=== PATIENT | female | born 1950 | race Caucasian/White ===

== ENCOUNTER 2020-01-14 00:09 | Outpatient (CLI) | payer MEDICARE, SELFPAY ==
[2020-01-14 18:02] LABS: SARS-CoV-2 RNA PCR Negative
== END 2020-01-14 00:10 | disposition home or self-care (01) ==
LOC: ANHCOVIDDT 00:09
PROVIDERS: PCP Family Medicine; Visit Provider Surgery
DX: Z01.812 Encounter for preprocedural laboratory examination (principal); Z20.828 Contact with and (suspected) exposure to other viral communicable diseases
CPT/HCPCS: 87635; C9803; U0003

== ENCOUNTER 2020-01-14 10:32 | Outpatient (CLI) | payer MEDICARE, SELFPAY ==
--- NOTE | 2020-01-14 10:34 | ECG_ITS ---
Measurements Intervals [place] Rate: 84 P: 25 MO: 178 QRS: 41 QRSD: 84 T: 30 QT: 349 QTc: 415 Interpretive Statements SINUS RHYTHM BASELINE ARTIFACT- I, II, III, AVR, AVL, AVF NORMAL ECG Electronically Signed On 01-14-2020 10:56:05 CDT by Portillo Ortiz D.O.
== END 2020-01-14 10:33 | disposition home or self-care (01) ==
LOC: ANHSURGERY 10:34
PROVIDERS: PCP Family Medicine; Visit Provider Surgery
DX: I10 Essential (primary) hypertension (principal); Z01.818 Encounter for other preprocedural examination
CPT/HCPCS: 93005

== ENCOUNTER 2020-01-17 00:38 | Day surgery (SDC) | payer MEDICARE, SELFPAY ==
[2020-01-13 14:10] VITALS: BMI 38.9
[2020-01-17 06:58] VITALS: BP 128/70; PULSE 93; RESP 18; TEMP 35.9; O2SAT 99
[2020-01-17] MEDS: LACTATED RINGERS 1,000 ML 30 ML IV CONT ×2 (07:39→09:48)
--- NOTE | 2020-01-17 08:30 | WPDANESEPPF ---
Anes - Initial Pre Proc Eval Procedure: Operation Date: 01/17/20 08:45 Proposed Procedures p Excision Lipoma Left Upper Back - Tyler Chin MD Date/Time: 01/17/20 08:30 Surgeon: Tyler Chin MD Pre Op Diagnosis: Lipoma Left Upper Back Patient Data Age: 69 Gender: F Height: 5 ft 1 in Weight: 91.4 kg Last Vital Signs Temp 35.9 C L 01/17/20 06:58 Pulse 93 01/17/20 06:58 Resp 18 01/17/20 06:58 BP 128/70 01/17/20 06:58 Pulse Ox 99 01/17/20 06:58 Allergies Allergy/AdvReac Type Severity Reaction Status Date / Time SHELLFISH Allergy Severe ANAPHYLACTIC Uncoded 01/17/20 07:13 SHOCK Home Medications Medication Instructions Recorded Confirmed Type multivitamin 1 tablet PO DAILY 03/26/19 01/17/20 History cyclobenzaprine 5 mg tablet 5 mg PO TID PRN #30 tablet 06/03/19 01/17/20 Rx ospemifene 60 mg tablet 60 mg PO DAILY #90 tablet 12/28/19 01/17/20 Rx diclofenac sodium 75 mg PO PRN PRN 01/13/20 01/17/20 History lisinopril 30 mg PO HS 01/13/20 01/17/20 History Patient hx anesthesia problems: none Family hx anesthesia problems: none PMFSH Past Medical History Medical History Dermatitis herpetiformis HTN (hypertension) SVT (supraventricular tachycardia) Surgical History Surgical History H/O arthroscopy of right knee H/O foot surgery History of delivery History of colonoscopy History of D&C History of right breast biopsy Family History Family History Mother Diabetes mellitus Hypertension Patient's mother is , Onset Age: 85 Familial primary pulmonary hypertension Father Malignant neoplasm of prostate Patient's father is , Onset Age: 78 Sibling Patient's brother is , Onset Age: 67 Family history of chronic obstructive pulmonary disease Other Family history of attention deficit hyperactivity disorder (ADHD) Social History Social History Smoking status: Never smoker Alcohol intake: never Substance use: unknown Living arrangements: with family Gender identity (if verbalized by the patient): Female Spiritual care concerns: No Anes - Eval Final PreProcedure Day of Procedure 01/17/20 08:30 Patient weight: obese Heart: regular rate and rhythm Lungs: clear to auscultation Airway: Mallampati scale class II Neurological: alert and oriented Last oral intake: >/= 8 hours ASA classification: III Emergent: no Anesthetic plan: proceed Anesthesia type and monitoring: general GIVS and standard monitoring Informed Consent: The patient's anesthetic plan and its attendant risks and benefits were discussed with the patient/family/POA. Questions were solicited and answers provided to the satisfaction of the patient/family/POA.
--- NOTE | 2020-01-17 08:37 | WPDHPUPDATE1 ---
History and Physical Update Update Date/Time: 01/17/20 08:37 History and Physical has been reviewed, including an updated exam of the patient. There are NO changes in the patient's condition. Risks, benefits, and alternatives have been discussed and questions answered. Patient agrees to proceed with procedure.
[2020-01-17] MEDS: BUPIVACAINE/EPINEPHRINE 0.5% 10 ML VIAL 20 ML INFILTRATE (09:06)
--- NOTE | 2020-01-17 09:43 | P.OP_ITS ---
Procedure Note - Detailed Date of procedure: 01/17/20 Pre-op diagnosis: Lipoma Left Upper Back Subcutaneous mass a 0.2 x 5.2 cm left upper back Post-op diagnosis: same Procedure performed: Excision of subcutaneous mass left upper back. Description of procedure: The patient was placed in the right lateral decubitus position. After a surgical time out confirming patient and procedure the patient was prepped and draped in the usual sterile fashion. Local anesthetic was administered subcutaneously. The lesion measured 8.2 x 5.2 cm before instilling any local anesthetic. A direct transverse incision was made over the lesion then I raised superior inferior flaps with Bovie cautery taking a thin margin circumferentially. I dissected down to the deep subcutaneous tissues and then completely excised the mass under direct vision. It appeared to be a fatty lobulated mass with only a very thin capsule. Bleeding was controlled with electrocautery. The wound was closed in two layers. An un-dyed 2-0 vicryl deep dermal and then a 4-0 undyed Vicryl running subcuticular closure was completed. Surgical glue applied as dressing. Estimated blood: loss 5 cc Patient tolerated this well. Implants: none Anesthesia: local Surgeon: Tyler Chin MD Advanced Practice Nurse: GURU [place], or 1st assist Estimated blood loss (mL): 5 Drains: No Packing: No Pathology: yes (Subcutaneous mass from the left upper back) Complications: No immediate complications Condition: stable Disposition: same day Findings: A somewhat lobulated fatty mass in the subcutaneous space densely adhered to the underlying fascia and back muscles.
[2020-01-17 09:48] VITALS: BP 116/69; PULSE 83; RESP 16; O2SAT 97
[2020-01-17 10:15] VITALS: BP 109/77; PULSE 76; RESP 16
[2020-01-17 10:45] VITALS: BP 115/73; PULSE 62; RESP 14
== END 2020-01-17 11:05 | disposition home or self-care (01) ==
PROVIDERS: PCP Family Medicine; Visit Provider Surgery
PROC: (CPT 21931; principal; 2020-01-17 08:45)
DX: D17.1 Benign lipomatous neoplasm of skin and subcutaneous tissue of trunk (principal); I10 Essential (primary) hypertension; E66.9 Obesity, unspecified; Z68.38 Body mass index [BMI] 38.0-38.9, adult
CPT/HCPCS: 21931; 87635; 88304; 93005; C9803; J2704; J3010; J7120; U0003

== ENCOUNTER 2020-03-25 00:35 | Outpatient (CLI) | payer MEDICARE, SELFPAY ==
[2020-03-25 19:13] LABS: SARS-CoV-2 RNA PCR Negative
== END 2020-03-25 00:36 | disposition home or self-care (01) ==
LOC: ANHCOVIDDT 00:35
PROVIDERS: PCP Family Medicine; Visit Provider Internal Medicine Gastroenterology
DX: Z01.818 Encounter for other preprocedural examination (principal); Z20.828 Contact with and (suspected) exposure to other viral communicable diseases
CPT/HCPCS: 87635; C9803; U0003

== ENCOUNTER 2020-03-29 00:56 | Day surgery (SDC) | payer MEDICARE, SELFPAY ==
[2020-03-21 12:04] VITALS: BMI 36.6
[2020-03-29 06:51] VITALS: BP 140/85; PULSE 126; RESP 18; TEMP 36.4; O2SAT 96
[2020-03-29] MEDS: LACTATED RINGERS 1,000 ML 150 ML IV CONT (07:01)
--- NOTE | 2020-03-29 07:04 | SUR.PREOP ---
ANESTHSIA NOTIFIED OF HEART RATE OF 125-130
--- NOTE | 2020-03-29 07:24 | P.PNAN_ITS ---
Anes - Initial Pre Proc Eval Procedure: Operation Date: 03/29/20 08:00 Proposed Procedures p Screening Colonoscopy - Stanislav Cintron MD Date/Time: 03/29/20 07:24 Surgeon: Stanislav Cintron MD Pre Op Diagnosis: Hx of Colon Polyps Patient Data Age: 69 Gender: F Height: 5 ft 2 in Weight: 89.5 kg Last Vital Signs Temp 97.6 F 03/29/20 06:51 Pulse 126 H 03/29/20 06:51 Resp 18 03/29/20 06:51 BP 140/85 03/29/20 06:51 Pulse Ox 96 03/29/20 06:51 Allergies Allergy/AdvReac Type Severity Reaction Status Date / Time SHELLFISH Allergy Severe ANAPHYLACTIC Uncoded 03/21/20 12:05 SHOCK Home Medications Medication Instructions Recorded Confirmed Type multivitamin 1 tablet PO DAILY 03/26/19 03/29/20 History diclofenac sodium 75 mg PO PRN PRN 01/13/20 03/29/20 History lisinopril 30 mg PO HS 01/13/20 03/29/20 History docusate sodium [Colace] 50 mg PO PRN PRN 03/21/20 03/29/20 History Patient hx anesthesia problems: none Family hx anesthesia problems: none PMFSH Past Medical History Medical History (Updated 01/26/20 @ 10:33 by Talita Persaud) Dermatitis herpetiformis HTN (hypertension) SVT (supraventricular tachycardia) Surgical History Surgical History H/O arthroscopy of right knee H/O foot surgery History of delivery History of colonoscopy History of D&C History of right breast biopsy Family History Family History Mother Diabetes mellitus Hypertension Patient's mother is , Onset Age: 85 Familial primary pulmonary hypertension Father Malignant neoplasm of prostate Patient's father is , Onset Age: 78 Sibling Patient's brother is , Onset Age: 67 Family history of chronic obstructive pulmonary disease Other Family history of attention deficit hyperactivity disorder (ADHD) Social History Social History Smoking status: Never smoker Alcohol intake: never Substance use: never Substance use type: does not use Living arrangements: with family Gender identity (if verbalized by the patient): Female Spiritual care concerns: No Anes - Eval Final PreProcedure Day of Procedure 03/29/20 07:24 Patient weight: overweight Heart: tachycardia Lungs: clear to auscultation Airway: Mallampati scale class II Neurological: alert and oriented Last oral intake: >/= 8 hours ASA classification: III Emergent: no Anesthetic plan: proceed Anesthesia type and monitoring: general GIVS and standard monitoring Informed Consent: The patient's anesthetic plan and its attendant risks and benefits were discussed with the patient/family/POA. Questions were solicited and answers provided to the satisfaction of the patient/family/POA.
--- NOTE | 2020-03-29 08:15 | P.CONGI_ITS ---
Assessment and Plan Assessment and plan (1) History of colon polyps: Code(s): Z86.010 - Personal history of colonic polyps Status: Acute Assessment and Plan: Patient has a history of rectal colon polyp more than 10 years ago. Last exam 2011 was unremarkable. Patient presents today for surveillance colonoscopy. Further recommendations will be given after endoscopy. GI Consult Note Consult date/time: 03/29/20 08:15 HPI: Alexia Black is a 69 year old female Presents for surveillance colonoscopy. Patient followed by Dr. Crawford. Patient has a history of colon polyps in the past. Her recent weight appetite bowel movements are normal. She denies abdominal pain. She has had no bleeding. Family history is noncontributory. Last exam was in 2011. Review of Systems Review of Systems: All systems reviewed & are unremarkable except as noted in HPI and below PMFSH Past Medical History Medical History (Updated 03/29/20 @ 08:17 by Stanislav Cintron MD) Dermatitis herpetiformis HTN (hypertension) SVT (supraventricular tachycardia) Surgical History Surgical History H/O arthroscopy of right knee H/O foot surgery History of delivery History of colonoscopy History of D&C History of right breast biopsy Family History Family History Mother Diabetes mellitus Hypertension Patient's mother is , Onset Age: 85 Familial primary pulmonary hypertension Father Malignant neoplasm of prostate Patient's father is , Onset Age: 78 Sibling Patient's brother is , Onset Age: 67 Family history of chronic obstructive pulmonary disease Other Family history of attention deficit hyperactivity disorder (ADHD) Social History Social History Smoking status: Never smoker Alcohol intake: never Substance use: never Substance use type: does not use Living arrangements: with family Gender identity (if verbalized by the patient): Female Spiritual care concerns: No Meds Home Medications and Allergies Home Medications Medication Instructions Recorded Confirmed Type multivitamin 1 tablet PO DAILY 03/26/19 03/29/20 History diclofenac sodium 75 mg PO PRN PRN 01/13/20 03/29/20 History lisinopril 30 mg PO HS 01/13/20 03/29/20 History docusate sodium [Colace] 50 mg PO PRN PRN 03/21/20 03/29/20 History Allergies Allergy/AdvReac Type Severity Reaction Status Date / Time SHELLFISH Allergy Severe ANAPHYLACTIC Uncoded 03/21/20 12:05 SHOCK Vital Signs Vital Signs - 24 hr 03/29/20 06:51 Temperature 97.6 F Pulse Rate 126 H Respiratory Rate 18 Blood Pressure 140/85 Pulse Oximetry 96 Exam Narrative: Exam Narrative: Physical exam reveals patient to be alert. Vital signs stable. HEENT exam unremarkable. Lungs are clear to auscultation and percussion. Heart is without murmur or extra sounds. Abdominal exam bowel sounds are present soft nontender with no organomegaly. Digital external rectal exam normal.
[2020-03-29 08:17] VITALS: BP 112/77; PULSE 107; RESP 20; O2SAT 95
[2020-03-29 08:27] VITALS: BP 120/79; PULSE 106; RESP 21; O2SAT 98
[2020-03-29 08:37] VITALS: BP 114/83; PULSE 103; RESP 22; O2SAT 98
== END 2020-03-29 08:49 | disposition home or self-care (01) ==
PROVIDERS: PCP Family Medicine; Visit Provider Internal Medicine Gastroenterology
PROC: 0DJD8ZZ Inspection of Lower Intestinal Tract, Via Natural or Artificial Opening Endoscopic (ICD-10-PCS; CPT 45378; principal; 2020-03-29 08:00)
DX: Z12.11 Encounter for screening for malignant neoplasm of colon (principal); K63.89 Other specified diseases of intestine; K64.8 Other hemorrhoids; Z86.010 Personal history of colon polyps; I10 Essential (primary) hypertension; I47.1 Supraventricular tachycardia
CPT/HCPCS: G0105; 87635; C9803; J2704; J7120; U0003

== ENCOUNTER → 2021-03-22 16:46 | Outpatient (CLI) | payer MEDICARE, SELFPAY ==
--- NOTE | ~2021-03-22 | MM_ITS ---
EXAMINATION: MM screening al BI w calvin HISTORY: Screening mammogram TECHNIQUE: Craniocaudal and mediolateral oblique 3-D tomosynthesis images were obtained and synthetic 2-D images were generated. CAD analysis was submitted and interpreted. COMPARISON: 04/01/2019, 04/29/2017, 10/05/2015 bilateral screening mammogram examinations BREAST PARENCHYMAL COMPOSITION: There are scattered areas of fibroglandular density. FINDINGS: There is no evidence of suspicious mass, calcification, or architectural distortion to sugg est malignancy in either breast. There has been no suspicious interval change. IMPRESSION: 1. No mammographic evidence of malignancy. 2. Recommend routine screening mammography in one year. BI-RADS Category 1: Negative Reviewed, dictated and finalized at location A. CARE FOREMAN
== END ==
PROVIDERS: PCP Family Medicine; Visit Provider Family Medicine
DX: Z12.31 Encounter for screening mammogram for malignant neoplasm of breast (principal)
CPT/HCPCS: 77063; 77067

== ENCOUNTER → 2021-10-18 12:18 | Outpatient (CLI) | payer MEDICARE, SELFPAY ==
--- NOTE | ~2021-10-18 | XR_ITS ---
XR knee LT 3V 10/18/2021 13:59 Indication: Left knee pain Procedure: 3 views left knee Comparison: 08/05/2013 Findings: There is a moderate-severe tricompartment osteoarthritis of the left knee, most advanced in the medial compartment. No fracture, subluxation or dislocation. No significant joint effusion. No f oreign bodies. Impression: 1: Moderate-severe tricompartment osteoarthritis of the left knee. Reviewed, dictated and finalized at location A. Impression: 1: Moderate-severe tricompartment osteoarthritis of the left knee.
--- NOTE | ~2021-10-18 | XR_ITS ---
XR knee RT 3V 10/18/2021 13:59 Indication: Right knee pain Procedure: 3 views right knee Comparison: No prior studies for comparison. Findings: There is a moderate-severe osteoarthritis of the right knee, most advanced in the medial co mpartment. No fracture, subluxation or dislocation. No significant joint effusion. No focal soft tiss ue abnormality. No foreign body. Impression: 1: Moderate-severe tricompartment osteoarthritis of the right knee. Reviewed, dictated and finalized at location A. Impression: 1: Moderate-severe tricompartment osteoarthritis of the right knee.
== END ==
PROVIDERS: PCP Family Medicine; Visit Provider Family Medicine
DX: M17.0 Bilateral primary osteoarthritis of knee (principal)
CPT/HCPCS: 73562

== ENCOUNTER 2022-07-25 10:51 | Outpatient (RCR) | payer MEDICARE, SELFPAY ==
--- NOTE | 2022-07-25 17:20 | PTOPEVDC ---
Assessment and note entered by Paula Vargas, PT, DPT Thank you for referring Alexia Black to [facility].? An evaluation has been completed. No further treatment is needed. Evaluation Information Assessment Status Evaluation Diagnosis elinor knee pain Onset chronic Subjective Information Pt states she has bone on bone arthritis in both knees. She is getting a R TKA on 08/27/22; she states she has BLE lymphedema. 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 She states this makes it really hard for her to walk well on her feet. Reported Pain Level Pain Score 2,2: Self Report Assessment PT Clinical Summary Alexia presents to therapy today for an initial evaluation with a diagnosis of elinor knee pain. She reports she will be having a R TKA in about a month. She reports bone on bone degenerative arthritis elinor. Today she demonstrates good active knee ROM elinor. She has decreased strength in her hips and knees elinor. She ambulates with a Trendelenburg pattern and with a shortened stride length. Today she was instructed in a pre-op exercise routine to complete on BLE prior to surgery. Questions were answered about therapy expectations post -op. In order to preserve recourses it was recommended that she complete her issued HEP on her own prior to surgery and that in person skilled rehab shoulder begin post-op. Pt is agreeable with this POC. She states she knows she will need a new order after surgery.
== END 2022-07-26 08:12 | disposition home or self-care (01) ==
LOC: ANHGOSHPT 10:51
PROVIDERS: PCP Family Medicine; Visit Provider Nurse Practitioner Family
DX: M25.561 Pain in right knee (principal); M25.562 Pain in left knee
CPT/HCPCS: 97110; 97112; 97161

== ENCOUNTER → 2022-10-24 10:21 | Outpatient (CLI) | payer MEDICARE, SELFPAY ==
--- NOTE | ~2022-10-24 | MM_ITS ---
EXAMINATION: MM screening [facility] BI w calvin HISTORY: Screening mammogram TECHNIQUE: Craniocaudal and mediolateral oblique 3-D tomosynthesis images were obtained and synthetic 2-D images were generated. CAD analysis was submitted and interpreted. COMPARISON: 03/22/2021, 04/01/2019, 05/09/2017 BREAST PARENCHYMAL COMPOSITION: There are scattered areas of fibroglandular density. FINDINGS: No suspicious mass, calcification, or architectural distortion are identified in either zakia ast to suggest malignancy. There has been no suspicious interval change. IMPRESSION: 1. No mammographic evidence of malignancy. 2. Recommend routine screening mammography in one year. BI-RADS Category 1: Negative Reviewed, dictated and finalized at location A.
== END ==
PROVIDERS: PCP Family Medicine; Visit Provider Nurse Practitioner Family
DX: Z12.31 Encounter for screening mammogram for malignant neoplasm of breast (principal)
CPT/HCPCS: 77063; 77067

== ENCOUNTER 2023-08-21 10:14 | Outpatient (CLI) | payer MEDICARE, SELFPAY ==
--- NOTE | ~2023-08-21 | DEXA_ITS ---
Bone Density Report Name: ADONIS COKER Age: 72 Sex: Female Ethnicity: White Date of : 1950 Indication: postmenopausal; screening for osteoporosis; height loss; Referring Provider: JARET KELSEY Study: Bone densitometry was performed. Exam Date: August 21, 2023 Accession number: [id number] Bone Density: Region BMD T-score Z-score Classification AP Spine (L1, L4) 1.143 1.0 3.2 Normal Femoral Neck (Left) 0.685 -1.5 0.4 Osteopenia Total Hip (Left) 0.913 -0.2 1.4 Normal Femoral Neck (Right) 0.709 -1.3 0.6 Osteopenia Total Hip (Right) 0.884 -0.5 1.1 Normal Total Hip Mean 0.899 -0.4 1.3 Normal World Health Organization criteria for BMD impression classify patients as: Normal (T-score at or above -1.0), Osteopenia (T-score between -1.0 and -2.5), or Osteoporosis (T-score at or below -2.5). 10-year Fracture Risk(1): Major Osteoporotic Fracture 9.4% Hip Fracture 1.4% Reported Risk Factors: [place] (), Neck BMD=0.685, BMI=36.0 (1) FRAX(R) Version 3.08. Fracture probability calculated for an untreated patient. Fracture probability may be lower if the patient has received treatment. Previous Exams: Region Exam Age BMD T-score BMD Change BMD Change Date g/cm2 vs Baseline vs Previous AP Spine(L1, L4) 08/21/2023 72 1.143 1.0 0.132* 0.123 09/23/2014 64 1.020 -0.2 0.009 0.040 01/24/2010 59 0.980 -0.5 -0.031* -0.031* 02/15/2008 57 1.011 -0.2 Total Hip(Left) 08/21/2023 72 0.913 -0.2 -0.052* -0.055 09/23/2014 64 0.967 0.2 0.003 0.059 01/24/2010 59 0.908 -0.3 -0.057* -0.057* 02/15/2008 57 0.964 0.2 Total Hip(Right) 08/21/2023 72 0.884 -0.5 -0.117* -0.106 09/23/2014 64 0.990 0.4 -0.012 0.061 01/24/2010 59 0.929 -0.1 -0.073* -0.073* 02/15/2008 57 1.002 0.5 *Denotes significance at 95% confidence level, LSC for AP Spine = 0.022 g/cm2, LSC for Total Hip = 0.027 g/cm2 Clinical Information Provided by Patient: Patient maximum height was 62 Menopause Age: 51 No regular weight bearing exercise Does not regularly consume dairy products Drinks caffeinated beverages Onset of menses at age 14 Number of children 2 Impression: The patient has low bone mass, based on the Left Femoral Neck T-score. The patient fong
== END 2023-08-21 10:15 ==
LOC: MICIMG 10:15
PROVIDERS: PCP Family Medicine; Visit Provider Family Medicine
DX: M85.89 Other specified disorders of bone density and structure, multiple sites (principal); Z78.0 Asymptomatic menopausal state; Z13.820 Encounter for screening for osteoporosis
CPT/HCPCS: 77080

== ENCOUNTER 2023-10-03 14:00 | Outpatient (CLI) | payer MEDICARE, SELFPAY ==
[2023-10-03 19:26] LABS: Basophils Absolute Auto 0.1 K/mm3 (0.0-0.1); Basophils Percent Auto 0.7 % (0.2-1.2); Eosinophils Absolute Auto 0.1 K/mm3 (0-0.3); Eosinophils Percent Auto 1.2 % (0-4.4); Hemoglobin 11.5 g/dL (12.0-15.0); Immature Granulocyte Absolute 0.04 K/mm3 (0.00-0.031); Immature Granulocyte Percent A 0.5 % (0-0.5); Lymphocytes Absolute Auto 1.73 K/mm3 (0.9-3.2); Lymphocytes Percent Auto 23.6 % (18.3-44.2); Mean Corpuscular HGB Conc 32.9 g/dl (32-36); Mean Corpuscular Hemoglobin 29.1 pg (26-34); Mean Corpuscular Volume 88.6 fl (80-100); Mean Platelet Volume 9.9 fl (7.4-10.4); Monocytes Absolute Auto 0.7 K/mm3 (0.1-0.6); Monocytes Percent Auto 9.7 % (2.6-8.5); Neutrophils Absolute Auto 4.7 K/mm3 (1.3-6.7); Neutrophils Percent Auto 64.3 % (45.5-73.1); Platelet Count Result 379 k/mm3 (150-375); Red Blood Count 3.95 M/mm3 (4.2-5.4); Red Cell Distribution Width 13.1 % (11.5-14.5); White Blood Count 7.3 K/mm3 (4.5-10.0)
[2023-10-03 19:35] LABS: Alanine Aminotransferase 35 U/L (6-35); Albumin Level 4.5 g/dL (3.5-5.1); Alkaline Phosphatase 63 U/L (38-126); Anion Gap 8 mmol/L (4-12); Aspartate Amino Transferase 44 U/L (14-36); Bilirubin,Total 0.8 mg/dL (0.2-1.3); Blood Urea Nitrogen 20 mg/dL (7-17); Calcium 9.3 mg/dL (8.4-10.2); Carbon Dioxide 28 mmol/L (22-30); Chloride 98 mmol/L (98-107); Estimated Glomerular Filt Rate > 60; Glucose 85 mg/dL (65-110); Magnesium 2.3 mg/dL (1.6-2.3); Potassium 4.2 mmol/L (3.4-5.0); Sodium 134 mmol/L (137-145)
[2023-10-03 19:56] LABS: Iron 64 ug/dL (37-170)
[2023-10-03 20:01] LABS: Percent Iron Saturation 24 % (20-50)
[2023-10-03 20:26] LABS: Thyroid Stimulating Hormone Reflex 0.066 uIU/mL (0.465-4.68)
[2023-10-03 21:04] LABS: Vitamin D 25 Hydroxy 61.9 ng/mL
[2023-10-04 00:39] LABS: Free T4 Free Thyroxine Reflex 1.47 ng/dL (0.78-2.19)
[2023-10-04 06:23] LABS: Total Triiodothyronine (T3) 1.38 NG/ML (0.97-1.69)
== END 2023-10-03 14:01 | disposition home or self-care (01) ==
LOC: ANHGOSHLAB 14:01
PROVIDERS: PCP Family Medicine; Visit Provider Nurse Practitioner Family
DX: R25.2 Cramp and spasm (principal); G47.00 Insomnia, unspecified; R53.83 Other fatigue; E55.9 Vitamin D deficiency, unspecified; E53.9 Vitamin B deficiency, unspecified; L28.0 Lichen simplex chronicus
CPT/HCPCS: 36415; 80053; 82306; 82607; 82728; 83540; 83550; 83735; 84439; 84443; 84480; 85025

== ENCOUNTER 2024-10-27 15:32 | Outpatient (CLI) | payer MEDICARE, SELFPAY ==
--- NOTE | ~2024-10-27 | XR_ITS ---
Right ankle Technique: AP, oblique, and lateral views were obtained. Clinical History: Pain Findings: No acute fracture or dislocation is seen. Osseous alignment is anatomic. Mild degenerative change of the tibiotalar joint present. Soft tissues are otherwise unremarkable. Impression: Mild degenerative change of the tibiotalar joint. Reviewed, dictated and finalized at location . Impression: Mild degenerative change of the tibiotalar joint.
== END 2024-10-27 15:33 | disposition home or self-care (01) ==
LOC: GOSHIMG 15:32
PROVIDERS: PCP Family Medicine; Visit Provider Nurse Practitioner Family
DX: M19.071 Primary osteoarthritis, right ankle and foot (principal)
CPT/HCPCS: 73610

== ENCOUNTER 2024-12-02 14:14 | Outpatient (CLI) | payer MEDICARE, SELFPAY ==
--- OUTSIDE RECORDS SUMMARY | 2024-12-02 14:19 | XMS_ITS | Encounter Summary ---
Author Organization [facility] Healthcare Address [address] [place] [address] Care Team Providers Care Ginning Operator Name Role Phone Aamir Crawford MD Primary Care Provider [phone] Olya Pham MD Unavailable [phone] Kd Murillo MD Unavailable [phone] Aggie PROCTOR MD PhD, Rai Patino Unavailable Liudmila Chan NP Unavailable [phone] Encounter Details Date Type Department Care Team (Late st Contact Info) Description 03/09/2024 Telephone [facility] [address] [place] [address] Rama Healy RN Social History Tobacco Use Types Packs/Day Years Used Date Smoking Tobacco: Never Passive Smoke Exposure: Past Smokeless Tobacco: Never [facility] Utilities Answer Date Recorded In the past 12 months has [employer], gas, oil, or water company threatened to shut off services in your home? No 02/22/2024 Social Connection and Isolation Panel Answer Date Recorded In a typical week, how many times do you talk on the phone with family, friends, or neighbors? More than three times a week 02/22/2024 How often do you get togethe r with friends or relatives? More than three times a week 02/22/2024 How often do you attend chur ch or restorationism services? More than 4 times per year 02/22/2024 Do you belong to any clubs o r organizations such as confucianism groups, unions, fraternal or athletic groups, or school groups? Yes 02/22/2024 How often do you attend meet ings of the clubs or organizations you belong to? More than 4 times per year 02/22/2024 Are you , , di vorced, , never , or living with a partner? 02/22/2024 AUDIT-C Answer Date Recorded Q1: How often do you have a drink containing alcohol? Never 02/26/2024 Q2: How many drinks containi ng alcohol do you have on a typical day when you are drinking? Patient does not drink Q3: How often do you have si x or more drinks on one occasion? Never 02/26/2024 Overall Financial Resource Strain (CARDIA) Answe r Date Recorded How hard is it for you to pa y for the very basics like food, housing, medical care, and heating? Not hard at all 02/22/2024 PHQ-2 Answer Date Recorded PHQ-2 Total Score 1 02/22/2024 Hunger Vital Sign Answer Date Recorded Within the past 12 months, y ou worried that your food would run out before you got the money to buy more. Never true 02/22/20 24 Within the past 12 months, t he food you bought just didn't last and you didn't have money to get more. Never true 02/22/2024 PRAPARE - Transportation Answer Date Re corded In the past 12 months, has l ack of transportation kept you from medical appointments or from getting medications? No 06/2023 In the past 12 months, has l ack of transportation kept you from meetings, work, or from getting things needed for daily living? No 02/22/2024 Housing Stability Vital Sign Answer Kemal e Recorded In the last 12 months, was t here a time when you were not able to pay the mortgage or rent on time? No 02/22/2024 In the past 12 months, how m any times have you moved where you were living? 0 02/22/2024 At any time in the past [address] [facility], were you homeless or living in a correction (including now)? No 02/22/2024 Personal Safety Answer Date Recorded Have you ever been in or are you currently in a harmful physical or emotional relationship or is someone making you feel afraid or unsafe? 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 Not on file Not on file documented as of this encounter Plan of Treatment Not on file documented as of this encounter Visit Diagnoses Not on filedocumented in this encounter Care Teams Ginning Operator Relationship Specialty Start Date End Date Aamir Crawford MD PCP - General 08/22/16 Olya Pham MD Consulting Physician Medical Oncology 12/29/23 Kd Murillo MD Consulting Physician Orthopedic Surgery 12/29/23 Rai Marcial III, MD PhD [address] [facility] [place] [address] Radiation Oncologist Radiation Oncology 02/24/24 Liudmila Chan NP [address] [place] [address] Nurse Practitioner Nurse Practitioner 10/11/24 documented as of this encounter
--- OUTSIDE RECORDS SUMMARY | 2024-12-02 14:19 | XMS_ITS | Clinical Summary ---
Author Organization [facility] [facility] Register Address [facility] [place] [address] Care Team Providers Care Spice Grinder Name Role Phone Aamir Crawford MD Primary Care Provider [phone] Olya Pham MD Unavailable [phone] Kd Murillo MD Unavailable Aggie PROCTOR MD PhD, Rai Patino Unavailable Liudmila Chan NP Unavailable [phone] Allergies Active Allergy Reactions Criticality Noted Date Comments Shellfish Containing Products Anaphylaxis High Medications diclofenac DR (VOLTAREN) 75 mg EC tabletIndications: Osteoarthritis Take 1 tablet (75 mg total) by mouth 2 (two) times a day 60 tablet 11 03/22/20 24 025 Active methocarbamoL (ROBAXIN) 500 mg tabletIndications: Soft tissue sarcoma of thigh, left (HCC) Take 1 tablet (500 mg total) by mouth 2 (two) times a day as needed for muscle spasms 60 tablet 1 04/12/20 24 Active indapamide (LOZOL) 2.5 mg tablet Take 1 tablet (2.5 mg total) by mouth daily 03/01/20 24 Active prochlorperazine (Compazine) 10 mg tabletIndications: Soft tissue sarcoma of thigh, left (HCC),Undifferenti ated pleomorphic sarcoma (HCC) Take 1 tablet (10 mg total) by mouth every 6 (six) hours as needed for nausea or vomiting 30 tablet 3 05/12/19 25 Active ondansetron ODT (ZOFRAN-ODT) 8 mg disintegrating tabletIndications: Cancer Chemotherapy-Induc ed Nausea and Vomiting,Preventio n of Chemotherapy-Induc ed Nausea and Vomiting Take 1 tablet (8 mg total) by mouth every 8 (eight) hours as needed for nausea or vomiting 60 tablet 2 06/02/19 25 Active HYDROcodone-acetam inophen (NORCO) 5-325 mg per tabletIndications: Postoperative pain Take 1 tablet by mouth every 4 (four) hours as needed for pain 180 tablet 10/12/19 25 Active morphine ER (MS CONTIN) 15 mg 12 hr tabletIndications: severe chronic pain requiring long-term opioid treatment Take 1 tablet (15 mg total) by mouth every 12 (twelve) hours 60 tablet 07/10/19 25 025 Discontinu ed(Patient Reported) eszopiclone (LUNESTA) 1 mg tabletIndications: Insomnia Take 1 tablet (1 mg total) by mouth nightly Take immediately before bedtime 30 tablet 07/15/19 25 025 Discontinu ed(Patient Reported) oxyCODONE myristate 9 mg capsule,Elizabeth morris 12hr tmprrIndications:s evere chronic pain requiring long-term opioid treatment Take 9 mg by mouth every 12 (twelve) hours 60 capsule 07/15/19 25 025 Discontinu ed(Patient Reported) rOPINIRole (REQUIP) 0.25 mg tabletIndications: Postoperative pain Take 1-3 tablets (0.25-0.75 mg total) by mouth nightly as needed (Restless leg syndrome) 90 tablet 08/05/19 25 025 Discontinu ed(Patient Reported) doxycycline hyclate 100 mg capsuleIndications :Infection of lower extremity associated with hardware Take 1 tablet/capsule (100 mg total) by mouth 2 (two) times a day 180 tablet/caps ule 3 08/17/19 25 025 nystatin powderIndications: Soft tissue sarcoma of thigh, left (HCC) Apply topically 4 (four) times a day Under folds for skin irritation/itc joyce 15 g 1 08/19/19 25 025 Discontinu ed(Patient Reported) lemborexant 5 mg tabletIndications: Insomnia, unspecified type Take 5 mg by mouth nightly 30 tablet 08/19/19 25 025 Discontinu ed(Patient Reported) gabapentin (NEURONTIN) 300 mg capsuleIndications :Soft tissue sarcoma of thigh, left (HCC) Take 1 capsule (300 mg total) by mouth daily 90 capsule 1 09/23/19 25 025 Discontinu ed(Patient Reported) cefadroxil (DURICEF) 500 mg capsuleIndications :Bone/Joint Infection Take 1 capsule (500 mg total) by mouth 2 (two) times a day 60 capsule 3 10/12/19 25 025 nystatin 100,000 unit/mL suspensionIndicati ons:Soft tissue sarcoma of thigh, left (HCC) Take 5 mL (500,000 Units total) by mouth 4 (four) times a day for 7 days Swish in mouth and swallow. 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 Most recent LLE MRI demonstrates Left anterior thigh sarcoma resection with distal femoral resection and endoprosthetic reconstruction. Small postoperative fluid collection along the femoral prosthesis and 1.4 cm nonenhancing, T1 and T2 hyperintense nodule superficial to the vastus lateralis muscle, favored to represent fat necrosis or small postoperative fluid collection. She is clinically doing well at this time. - continue Doxycycline 100 mg PO BID for chronic PO suppression due to retained hardware - Imaging per Oncology - I discussed with the patient my impression, the imaging findings, and treatment plan in detail with a focus on the etiology, natural history, and management of symptoms. - I discussed with the patient the rationale for treatment, culture results, risk of recurrent infection, signs/symptoms of recurrent infection, and to contact ID clinic with any questions or concerns. 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 She is clinically doing well at this time. - 05/12/24 labs reviewed - continue Doxycycline 100 mg PO BID for chronic PO suppression due to retained hardware - Imaging per Dr. Murillo - I discussed with the patient my impression, the imaging findings, and treatment plan in detail with a focus on the etiology, natural history, and management of symptoms. - I discussed with the patient the rationale for treatment, culture results, risk of recurrent infection, signs/symptoms of recurrent infection, and to contact ID clinic with any questions or concerns. Assessment & Plan (03/09/2024 3:21 PM POLE PEELING MACHINE OPERATOR HELPER): Completed approximately three weeks combined Cefazolin and Rifabutin for SSI and hardware associated infection of the femoral hardware and knee joint with MSSA BSI. - 03/01 labs reviewed - 03/08 inflammatory markers pending - Complete total six week course Cefazolin 2g IV Q8 on 03/11/24. - On 03/12/24, start Doxycycline 100 mg PO BID for chronic PO suppression due to retained hardware. - Imaging per Dr. 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 for MSSA BSI and Left femoral prosthesis hardware infection currently on cefazolin and rifabutin who presented to the ED 02/18 for evaluation of fever, nausea and vomiting, and abdominal pain. She underwent partial femoral resection and reconstruction with hardware on 01/07, complicated by SSI and hardware associated infection of the femoral hardware and knee joint with MSSA bloodstream infection. She was treated with IV cefazolin starting 01/27 and rifabutin was added 01/30; planned on 6 weeks of therapy followed by PO suppression due to retained hardware. CT A/P 02/18: CT A/P 02/18: no definite findings to account for symptoms; left inguinal, pelvic, and retroperitoneal lymphadenopathy; colonic diverticulosis without diverticulitis, mild increased enhancement of multiple bowel loops in the left hemiabdomen. RVP 02/18 negative. C. Difficile negative. Rifabutin discontinued 02/19 due to concern for adverse drug reaction. Since being discontinued, patient's symptoms have improved, and WBC increased. While admitted developed R. FA phlebitis from IV infiltration. She was administered one dose of daptomycin prior to discharge and instructed to call ID clinic if phlebitis does not improve. Recommending continuing treatment with planned 6- week course of IV cefazolin (01/29/24- 03/11/24) then suppress. Recommendations: - Administer 1 dose of daptomycin 8mg/kg ABW prior to discharge for right FA phlebitis (ordered) - Continue cefazolin 2gm IV q8hr for MSSA BSI and knee PJI - Monitor CBC w/ diff and CMP weekly minimum - ID follow up scheduled for 02/26 at [address] Jerry - ID is formally signing off but will continue to monitor patient peripherally while in patient. Please see signoff note from 02/22 for complete recommendations. Enteritis 02/19/2024 Assessment & Plan (02/21/2024 2:20 PM CDT): Had an episode of nausea and abdominal pain during previous hospitalization (per progress notes, seemed to have happened overnight 01/30-01/31) after starting rifabutin on 01/30, which resolved. The evening of 02/16, she developed fevers to 101.7 which persisted and presented to the ED 02/18 with abdominal pain, nausea, and vomiting. CT A/P 02/18: CT A/P 02/18: no definite findings to account for symptoms; left inguinal, pelvic, and retroperitoneal lymphadenopathy;colonic diverticulosis without diverticulitis, mild increased enhancement of multiple bowel loops in the left hemiabdomen. RVP 02/18 negative. C. Difficile test pending. C. Dif 02/19 negative Recommendations - Suspect that the patient's fever, nausea/vomiting, abdominal pain, and leukopenia (also normalization of platelet count in setting of recent thrombocytosis) may be due to rifabutin, which can cause GI upset, drug fever, and thrombocytopenia > leukopenia. 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 Blood cultures have cleared. TTE is negative. Neck pain is concerning. She still needs MRI to evaluate for vertebral osteomyelitis. I am comfortable adding rifampin. Due to interactions with eliquis, we will use rfiabutin. Consulted patient on orange color fluid. Recs: Continue cefazolin Dc daily blood cultures (done) OK to place PICC line Anticipate IV cefazolin on discharge with possible plans to transition to PO antibiotics and eventual suppression in clinic Start rifabutin (done) Check CMP with am labs Await MRI findings ID will continue to follow Assessment & Plan (02/04/2024 12:24 PM CDT): 73 y.o. female with history of sarcoma s/p left femur replacement on 01/07 who presented to the ED on 01/24 with fever, pain, stiffness, and purulent drainage from surgical wound. She was evaluated by orthopedic surgery and admitted with concern for SSI. She went to the OR on 01/27 with Ortho surgery. Murky fluid was encountered intraoperatively to the knee joint. OR cultures were taken which grew MSSA. Blood cultures from the ED (01/26) also positive for MSSA. Subsequent blood cultures from 01/28, 01/29, and 01/30 all negative. TTE on 01/28 showed no endocarditis. She reported C-spine neck pain- MRI 01/30 showed no discitis-osteomyelitis or epidural abscess. She was started on cefazolin on 01/27. Rifabutin was added on 01/30. Recommendations: - Continue cefazolin 2gm IV q8hr and rifabutin 300mg PO BID - Monitor CBC w/ diff and CMP - ID is formally signed off but will continue to monitor peripherally while inpatient. Recommending treating with 6 weeks (01/29/24-03/11/24) of cefazolin and rifabutin to be followed with suppression given retained hardware. Please see sign off note from 02/01 for complete recommendations. 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 Hx of total knee arthroplasty, left 12/29/2023 Left knee pain 12/20/2022 Aftercare following joint replacement surgery Essential (primary) hypertension 08/28/2022 FDC (current) use of opiate analgesic 08/19 Chronic midline low back pain without sciatica 0 08/28/2022 Obesity, unspecified 08/28/2022 Presence of right artificial knee joint 08/29/19 Osteoarthritis 08/27/2022 Primary osteoarthritis of right knee 06/10/2022 Overview (06/10/2022): Added automatically from request for surgery [id number] Resolved Problems Problem Noted Date Diagnosed Date Resolved Date Unspecified visual loss 08/28/2022 03/2 08/2024 Encounters Date Type Department Care Team Description 12/02/2024 10:28 AM CDT Hospital Encounter [facility] Diagnostic Imaging [address] [place] [id number] Postoperative pain; Hx of total knee arthroplasty, left; Surgical follow-up care 12/02/2024 Telephone [facility] Orthopaedic Surgery [address] [facility] 6th [place] [address] [place] [address] Kd Murillo MD Increased Left Knee/Thigh Pain 11/29/2024 7:00 AM CDT Therapy [facility] Physical Therapy [address] [facility] 1st Floor [address] [place] [address] Barnes, Renetta Cannes, PLATEN BUILDER UP Postoperative pain (Primary Dx); Soft tissue sarcoma of thigh, left (HCC); Lymphedema 11/24/2024 2:00 PM CDT Therapy [facility] Physical Therapy [address] [place] [address] Floor [address] [place] [phone] Kusum Brooks, DPT Postoperative pain (Primary Dx); Soft tissue sarcoma of thigh, left (HCC); Lymphedema 11/17/2024 1:30 PM CDT Therapy [facility] Physical Therapy [address] [place] [address] Floor [address] [place] [phone] Renetta Barnes, PLATEN BUILDER UP Postoperative pain (Primary Dx); Soft tissue sarcoma of thigh, left (HCC); Lymphedema 11/16/2024 Telephone [facility] Orthopaedic Surgery [address] [place] [address] 6th [place] [address] [place] [address] Kd Murillo MD Dental Clearance 11/10/2024 2:30 PM CDT Therapy [facility] Physical Therapy [address] [place] [address] Floor [address] [place] [phone] Renetta Barnes, PLATEN BUILDER UP Postoperative pain (Primary Dx); Soft tissue sarcoma of thigh, left (HCC); Lymphedema 11/03/2024 1:30 PM CDT Therapy [facility] Physical Therapy [address] [place] [address] Floor [address] [place] [phone] Kusum Brooks, DPT Postoperative pain (Primary Dx); Soft tissue sarcoma of thigh, left (HCC); Lymphedema 10/20/2024 1:00 PM CDT Therapy [facility] Physical Therapy [address] [place] [address] [address] [place] [phone] Kusum Brooks, DPT Postoperative pain; Soft tissue sarcoma of thigh, left (HCC); Lymphedema 10/20/2024 Plan of Care Documentation [facility] Physical Therapy [address] [place] [address] [address] [place] [phone] 10/15/2024 Orders Only [facility] Oncology [address] [facility] [facility] [address] Floor 6 [place] [address] Cassidy Loco RN Postoperative pain (Primary Dx); Soft tissue sarcoma of thigh, left (HCC); Lymphedema 10/11/2024 Telephone [facility] Infectious Diseases [address] [facility] [address] [place] [phone] Lorena Cool CMA 09/29/2024 2:10 PM CDT Office Visit [facility] Orthopaedic Surgery [address] [facility] 6th [place] [address] [place] [phone] Kd Murillo MD Soft tissue sarcoma of thigh, left (HCC) (Primary Dx); Undifferentiated pleomorphic sarcoma (HCC) 09/29/2024 1:33 PM CDT - 09/29/2024 11:59 PM CDT Hospital Encounter [facility] [address] [place] [phone] Kd Murillo MD Left thigh pain; Hx of total knee arthroplasty, left; Undifferentiated pleomorphic sarcoma (HCC) Discharge Disposition: Discharge to home or self care 09/22/2024 9:30 AM CDT Office Visit [facility] Oncology [address] [place] [phone] Olya Pham MD Soft tissue sarcoma of thigh, left (HCC); Undifferentiated pleomorphic sarcoma (HCC) 09/22/2024 9:00 AM CDT Lab [address] [address] Soft tissue sarcoma of thigh, left (HCC); Undifferentiated pleomorphic sarcoma (HCC) 09/22/2024 Orders Only [facility] Orthopaedic Surgery [address] [place] [address] Advanced [facility] 6th [place] [address] [place] [address] Kd Murillo MD Undifferentiated pleomorphic sarcoma (HCC) (Primary Dx); Left thigh pain; Hx of total knee arthroplasty, left 09/20/2024 12:27 PM CDT - 09/20/2024 11:59 PM CDT Hospital Encounter [facility] Imaging [address] [place] [address] Discharge Disposition: Discharge to home or self care 09/20/2024 12:27 PM CDT - 09/20/2024 11:59 PM CDT Hospital Encounter [facility] Imaging [address] [place] [address] Soft tissue sarcoma of thigh, left (HCC); Undifferentiated pleomorphic sarcoma (HCC) Discharge Disposition: Discharge to home or self care 09/08/2024 Telephone [facility] Orthopaedic Surgery [address] [facility] 6th [place] [address] [place] [phone] Kd Murillo MD from Last 3 Months Immunizations Immunization Administration Dates Next Due Influenza, Quadrivalent, Hig h Dose, Preservative Free, Intrr 03/07/2020 Influenza, Quadrivalent, Spl it, Preservative Free, Intramuscular 03/16/2018 Influenza, Trivalent, High D ose, Split, Preservative Free, Intramuscular 02/19/2019 Pneumococcal Conjugate PCV 13 02/19/2019 Pneumococcal Polysaccharide PPV23 06/29/2018 ZOSTER Recombinant 04/20/2019,02/19/2019 Surgical History Surgery Date Site/Laterality Comments CO DELIVERY ONLY Section - (Added by TW Conv) TOE SURGERY Right great toe DILATION AND CURETTAGE OF UTERUS BREAST BIOPSY LIPOMA RESECTION KNEE ARTHROPLASTY 08/27/2022 Right JOINT REPLACEMENT Medical History Medical History Date Comments Personal history of other diseases of the circulatory system History of hypertension - (Added by TW Conv) Personal history of other diseases of the musculoskeletal system and connective tissue History of osteoarthritis - (Added by TW Conv) Unspecified visual loss 08/28/2022 Cancer (HCC) 01/12 Hypertension 20 yrs ago Low back pain ? 2019 Fibromyalgia, primary 06/15 Spinal stenosis Lumbar diagnosed 2022 Fatigue Mid April 2024 Osteoarthritis Family History Medical History Relation Name Comments Arthritis Brother Jerrod Family history of arthritis - (Added by TW Conv) Prostate cancer Father Family histo ry of malignant neoplasm of prostate - (Added by TW Conv) Diabetes Mother Family history of diabetes mellitus - (Added by TW Conv) Hypertension Mother Family history of hypertension - (Added by TW Conv) Arthritis Sister Maggie defects Sister Maggie Anesthesia problems Neg Hx Relation Name Status Comments Brother Jerrod Father Mother Sister Maggie Alive Social History Tobacco Use Types Packs/Day Years Used Date Smoking Tobacco: Never Passive Smoke Exposure: Past Smokeless Tobacco: Never Tobacco Cessation:Counseling Given: Not Answered [facility] Utilities Answer Date Recorded In the past 12 months has th e electric, gas, oil, or water company threatened [...] often do you attend chur ch or mormonism services? More than 4 times per year 02/22/2024 Do you belong to any clubs o r organizations such as sabianism groups, unions, fraternal or athletic groups, or school groups? Yes 02/22/2024 How often do you attend meet ings of the clubs or organizations you belong to? More than 4 times per year 02/22/2024 Are you , , di vorced, , never , or living with a partner? 02/22/2024 AUDIT-C Answer Date Recorded Q1: How often do you have a drink containing alcohol? Never 08/02/2024 Q2: How many drinks containi ng alcohol do you have on a typical day when you are drinking? Patient does not drink Q3: How often do you have si x or more drinks on one occasion? Never 08/02/2024 Overall Financial Resource Strain (CARDIA) Answe r [...] any time in the past 12 m [facility], were you homeless or living in a chcf (including now)? No 02/22/2024 Personal Safety Answer Date Recorded Have you ever been in or are you currently in a harmful physical or emotional relationship or is someone making you feel afraid or unsafe? 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 Not on file Not on file Obstetrics History Last Filed Vital Signs Vital Sign Reading Time Taken Comments Blood Pressure 131/79 09/22/2024 9:48 AM CDT Pulse 82 09/22/2024 9:48 AM CDT Temperature 36.4 C (97.5 F) 09/22/2024 9:48 AM CDT Respiratory Rate 12 09/22/2024 9:48 AM CDT Oxygen Saturation 97% 09/22/2024 9:48 AM CDT Inhaled Oxygen Concentration - - Weight 88.8 kg (195 lb 12.8 oz) 09/22/2024 9:48 AM CDT Height 154 cm (5' 0.63) 08/09/2024 12: 47 PM CDT Body Mass Index 37.45 08/09/2024 12:47 PM CDT Plan of Treatment Health Maintenance Due Date Last Done Comments Breast Cancer Screening-Mammogram 1950 Colon Cancer Screening-Colonoscopy 1950 Hepatitis C Screening 1950 Osteoporosis Screening-Bone Density Scan 1950 DTaP/Tdap/Td Vaccine (1 - Tdap) 09/22/1962 Hepatitis B Screening 09/22/1969 Well Visit 65+ 09/22/2016 Covid-19 Vaccine ( season) 2023 04/05/2021, 07/03/2020, 06/12/2020 Influenza Vaccine (#1) 2024 , 02/19/2019, 03/16/2018 Depression Screening 02/18/2025 02/19/2024, 01/27/20 24 Fall Risk Assessment 02/25/2025 02/26/2024, 02/22/20 24 Pneumococcal vaccine 65+ Completed 02/19/2019, 06/19 Zoster Vaccine Completed 04/20/2019, 02/19/2019 Medical Devices Implanted Type Area Auto Damage Adjuster Device Identifier Shelf Expiration Date Model / Serial / Lot [employer] Insert Tibial Knee Fixed Lm Posterior Stabilized Attune 7mm Size 5 Polyethylene [id number] - Sn/A - [id number] Implanted:Qty: 1 on 12/20/[address] MD at [facility] Other - see comments Left: Knee [employer] [id number] 09/18/2030 [id number] / N/A / [id number] [employer] Attune Cruciate Retain Cementless Knee Left 5 Narrow Component [id number] - [id number] Implanted:Qty: 1 on 12/20/[address] MD at [facility] Other - see comments Left: Knee [employer] [id number] 09/19/2031 [id number] / / [id number] [employer] Attune Fb Tib Base Sz 6 Por [id number] - Sn/A - [id number] Implanted:Qty: 1 on 12/20/[address] MD at [facility] Other - see comments Left: Knee [employer] [id number] 11/19/2031 [id number] / N/A / [id number] [employer] Attune Fb Tib Base Sz 6 Por [id number] - [id number] Implanted:Qty: 1 on 08/27/[address] MD at [facility] Right: Knee [employer] [id number] 05/21/2032 [id number] / / [id number] [employer] Attune Cruciate Retain Cementless Knee Right 5 Narrow Component [id number] - [id number] Implanted:Qty: 1 on 08/27/[address] MD at [facility] Right: Knee [employer] 07/19/2032 [id number] / / [id number] [employer] Insert Tibial Knee Fixed Rm Posterior Stabilized Attune 7mm Size 5 Polyethylene [id number] - [id number] Implanted:Qty: 1 on 08/27/[address] MD at [facility] Right: Knee [employer] [id number] 04/20/2030 [id number] / / [id number] [employer] Triathlon Asymmetric Knee Right Medial Left Lateral B Cone [id number] - [id number] Implanted:Qty: 1 on 01/08/2024 by Kd Murillo MD at [facility] Left: Femur [employer] [id number] 03/17/2028 5549-A-222 / / [id number] [employer] G[employer]rs Knee Small Axle Femoral [id number] - [id number] Implanted:Qty: 1 on 01/08/2024 by Kd Murillo MD at [facility] Left: Femur [employer] [id number] 09/10/2028 [id number] / / [id number] [employer] Triathlon 9mm 50mm Cemented Total Stabilize Knee Stem Femoral 5560-S-109 - [id number] Implanted:Qty: 1 on 01/08/2024 by Kd Murillo MD at [facility] Left: Femur [employer] [id number] 08/10/2028 5560-S-109 / / [id number] [employer] G[employer] 13mm 127mm Cemented Body Section Hip Proximal Straight Stem 6485-3-113 - [id number] Implanted:Qty: 1 on 01/08/2024 by Kd Murillo MD at [facility] Left: Femur [employer] [id number] 12/23/2027 6485-3-113 / / [id number] [employer] Gmrs 100mm Knee Extension Femoral Cocr [id number] - [id number] Implanted:Qty: 1 on 01/08/2024 by Kd Murillo MD at [facility] Left: Femur [employer] [id number] 04/25/2028 [id number] / / [id number] [employer] 40mm Knee Extension Femoral Cocr 6495-6-040 - [id number] Implanted:Qty: 1 on 01/08/2024 by Kd Murillo MD at [facility] Left: Femur [employer] [id number] 04/25/2028 6495-6-040 / / [id number] [employer] 65mm Knee Left Small Component Femoral Cocr [id number] - [id number] Implanted:Qty: 1 on 01/08/2024 by Kd Murillo MD at [facility] Left: Femur [employer] [id number] 10/22/2028 [id number] / / [id number] [employer] Simplex P Full Dose Radiopaque Preblend Cement Bone Tobramycin 6197-9-010 - [id number] Implanted:Qty: 1 on 01/08/2024 by Kd Murillo MD at [facility] Left: Femur [facility] [employer] [facility] [id number] 02/18/2025 6197-9-010 / / [id number] [employer] Simplex P Full Dose Radiopaque Preblend Cement Bone Tobramycin 6197-9-010 - [id number] Implanted:Qty: 1 on 01/08/2024 by Kd Murillo MD at [facility] Left: Femur [employer] [facility] [id number] 03/20/2025 6197-9-010 / / [id number] [employer] Simplex P Full Dose Radiopaque Preblend Cement Bone Tobramycin 6197-9-010 - [id number] Implanted:Qty: 1 on 01/08/2024 by Kd Murillo MD at [facility] Left: Femur [employer] [id number] 03/20/2025 6197-9-010 / / [id number] [employer] Simplex P Full Dose Radiopaque Preblend Cement Bone Tobramycin 6197-9-010 - [id number] Implanted:Qty: 1 on 01/08/2024 by Kd Murillo MD at [facility] Left: Femur [employer] [id number] 05/21/2024 6197-9-010 / / [id number] [employer] Insert Tibial Rot Hinge Poly Triathlon Sz 1 5612-0-001 - [id number] Implanted:Qty: 1 on 01/08/2024 by Kd Murillo MD at [facility] Left: Femur [facility] [employer] [facility] [id number] 09/03/2028 5612-0-001 / / [id number] [employer] Baseplate Tibial Rev Ravin Triathlon Sz 3 5612-B-300 - [id number] Implanted:Qty: 1 on 01/08/2024 by Kd Murillo MD at [facility] Left: Femur [employer] [facility] [id number] 09/10/2028 5612-B-300 / / [id number] [employer] G[employer] Pack Crosslink Knee Component Femoral Polyethylene 6481-2-150 - [id number] Implanted:Qty: 1 on 01/28/2024 by Kd Murillo MD at [facility] Left: Femur [employer] [id number] 09/29/2028 6481-2-150 / / [id number] [employer] Insert Tibial Knee Rotating Hng Triathlon 11mm Size 3 Polyethylene 5612-P-311 - [id number] Implanted:Qty: 1 on 01/28/2024 by Kd Murillo MD at [facility] Left: Femur [facility] [employer] [facility] [id number] 10/17/2027 5612-P-311 / / [id number] [employer] Knee Small Bushing Femoral [id number] - [id number] Implanted:Qty: 1 on 01/28/2024 by Kd Murillo MD at [facility] Left: Femur [facility] [employer] [facility] [id number] 09/07/2028 [id number] / / [id number] [employer] Knee Small Bushing Femoral 75002417 - [id number] Implanted:Qty: 1 on 01/28/2024 by Kd Murillo MD at [facility] Left: Femur [employer] [id number] 09/07/2028 [id number] / / [id number] Explanted Type Area Auto Damage Adjuster Device Identifier Shelf Expiration Date Model / Serial / Lot [employer] Gmrs Knee Small Bushing Femoral [id number] - [id number] Implanted:Qty: 1 on 01/08/2024 by Kd Murillo MD at [facility] Explanted:Qty: 1 on 01/28/2024 by Kd Murillo MD at [facility] Left: Femur [employer] [id number] 12/25/2026 [id number] / / [id number] [employer] Knee Small Bushing Femoral [id number] - [id number] Implanted:Qty: 1 on 01/08/2024 by Kd Murillo MD at [facility] Explanted:Qty: 1 on 01/28/2024 by Kd Murillo MD at [facility] Left: Femur [employer] [id number] 12/25/2026 [id number] / / [id number] [employer] rs Pack Crosslink Knee Component Femoral Polyethylene 6481-2-150 - [id number] Implanted:Qty: 1 on 01/08/2024 by Kd Murillo MD at [facility] Explanted:Qty: 1 on 01/28/2024 by Kd Murillo MD at [facility] Left: Femur [employer] [id number] 09/29/2028 6481-2-150 / / [id number] [employer] Insert Tibial Knee Rotating Hng Triathlon 11mm Size 3 Polyethylene 5612-P-311 - [id number] Implanted:Qty: 1 on 01/08/2024 by Kd Murillo MD at [facility] Explanted:Qty: 1 on 01/28/2024 by Kd Murillo MD at [facility] Left: Femur [employer] 12/02/2028 5612-P-311 / / [id number] Procedures Procedure Name Priority Date/Time Associated Diagnosis Comments XR KNEE LEFT 1 OR 2 VIEWS Routine 09/29/2024 1:53 PM CDT Left thigh pain Hx of total knee arthroplasty, left Undifferentiated pleomorphic sarcoma (HCC) XR FEMUR LEFT 2 OR MORE VIEWS Routine 09/29/2024 1:53 PM CDT Left thigh pain Hx of total knee arthroplasty, left Undifferentiated pleomorphic sarcoma (HCC) EGFR STAT 09/22/2024 8:59 AM CDT Soft tissue sarcoma of thigh, left (HCC) Undifferentiated pleomorphic sarcoma (HCC) DIFFERENTIAL AUTO Routine 09/22/2024 8:5 9 AM CDT Soft tissue sarcoma of thigh, left (HCC) Undifferentiated pleomorphic sarcoma (HCC) THYROID FUNCTION CASCADE Routine 09/22/2024 8:59 AM CDT Soft tissue sarcoma of thigh, left (HCC) Undifferentiated pleomorphic sarcoma (HCC) CBC WITH AUTO DIFFERENTIAL Routine 09/22/2024 8:59 AM CDT Soft tissue sarcoma of thigh, left (HCC) Undifferentiated pleomorphic sarcoma (HCC) COMPREHENSIVE METABOLIC PANEL STAT 09/22/2024 8:59 AM CDT Soft tissue sarcoma of thigh, left (HCC) Undifferentiated pleomorphic sarcoma (HCC) TSH Routine 09/22/2024 8:59 AM CDT Soft tissue sarcoma of thigh, left (HCC) Undifferentiated pleomorphic sarcoma (HCC) PET/CT FDG WHOLE BODY Schedule Routine, Read Routine (OP Routine) 09/20/2024 2:01 PM CDT Soft tissue sarcoma of thigh, left (HCC) Undifferentiated pleomorphic sarcoma (HCC) from Last 3 Months Results * XR Femur Left 2 or More Views (09/29/2024 1:53 PM CDT) Anatomical Region Laterality Modality Lower Extremities, Thigh, Femur Left Computed Radiography 09/29/2024 2:04 PM CDT Impressions 09/29/2024 2:04 PM CDT 1. Distal femoral resection with endoprosthetic reconstruction hinged total knee arthroplasty appears intact with minimal osteolysis or stress shielding along the medial tibial plate bone component interface. Electronically signed by: Richard Juan D.O. Narrative 09/29/2024 2:04 PM CDT EXAMINATION: XR FEMUR LEFT 2 OR MORE VIEWS, XR KNEE LEFT 1 OR 2 VIEWS HISTORY: Sarcoma FINDINGS: Comparison is made with 05/03/2024 and 01/08/2024 femur radiograph. Distal femoral resection with endoprosthetic reconstruction hinged total knee arthroplasty. The components appear intact without evidence of periprosthetic fracture. There is limited lucency along the medial margin of the tibial plate. The tibial component includes tibial augmentation. No Procedure Note Richard Juan, DO - 09/29/2024 EXAMINATION: XR FEMUR LEFT 2 OR MORE VIEWS, XR KNEE LEFT 1 OR 2 VIEWS HISTORY: Sarcoma FINDINGS: Comparison is made with 05/03/2024 and 01/08/2024 femur radiograph. Distal femoral resection with endoprosthetic reconstruction hinged total knee arthroplasty. The components appear intact without evidence of periprosthetic fracture. There is limited lucency along the medial margin of the tibial plate. The tibial component includes tibial augmentation. No IMPRESSION: 1. Distal femoral resection with endoprosthetic reconstruction hinged total knee arthroplasty appears intact with minimal osteolysis or stress shielding along the medial tibial plate bone component interface. Electronically signed by: Richard Juan D.O. Kd Murillo MD IMG XR PROCEDURES Final Re sult * XR Knee Left 1 or 2 Views (09/29/2024 1:53 PM CDT) Anatomical Region Laterality Modality Lower Extremities, Knee Left Computed Radiography 09/29/2024 2:04 PM CDT Impressions 09/29/2024 2:04 PM CDT 1. Distal femoral resection with endoprosthetic reconstruction hinged total knee arthroplasty appears intact with minimal osteolysis or stress shielding along the medial tibial plate bone component interface. Electronically signed by: Richard Juan D.O. Narrative 09/29/2024 2:04 PM CDT EXAMINATION: XR FEMUR LEFT 2 OR MORE VIEWS, XR KNEE LEFT 1 OR 2 VIEWS HISTORY: Sarcoma FINDINGS: Comparison is made with 05/03/2024 and 01/08/2024 femur radiograph. Distal femoral resection with endoprosthetic reconstruction hinged total knee arthroplasty. The components appear intact without evidence of periprosthetic fracture. There is limited lucency along the medial margin of the tibial plate. The tibial component includes tibial augmentation. No Procedure Note Richard Juan, DO - 09/29/2024 EXAMINATION: XR FEMUR LEFT 2 OR MORE VIEWS, XR KNEE LEFT 1 OR 2 VIEWS HISTORY: Sarcoma FINDINGS: Comparison is made with 05/03/2024 and 01/08/2024 femur radiograph. Distal femoral resection with endoprosthetic reconstruction hinged total knee arthroplasty. The components appear intact without evidence of periprosthetic fracture. There is limited lucency along the medial margin of the tibial plate. The tibial component includes tibial augmentation. No IMPRESSION: 1. Distal femoral resection with endoprosthetic reconstruction hinged total knee arthroplasty appears intact with minimal osteolysis or stress shielding along the medial tibial plate bone component interface. Electronically signed by: Richard Juan D.O. Kd Murillo MD IM XR PROCEDURES Final Re sult * eGFR (09/22/2024 8:59 AM CDT) eGFR 78 >=60 mL/min/1. 73 m2 Comment: Interpretive Data Reference Interval Normal >/= 90 mL/min/1.73m2 Mildly decreased* 60 - 89 mL/min/1.73m2 Mildly to moderately decreased 45 - 59 mL/min/1.73m2 Moderately to severely decreased 30 - 44 mL/min/1.73m2 Severely decreased 15 - 29 mL/min/1.73m2 Kidney Failure < 15 mL/min/1.73m2 *Relative to young adult level Estimated glomerular filtration rate is determined by the 2020 CKD-EPI equation recommended by the National Kidney Foundation (A Unifying Approach to GFR Estimation: Recommendations of the NKF-ASK Task Force on Reassessing the Inclusion of Race in Diagnosing Kidney Disease, JASN 2020). The CKD-EPI equation should not be used for patients with unstable renal function and has not been validated in children and those over 70. Current interpretive data was last reviewed 2021. Blood 09/22/2024 8:59 AM CDT 09/22/2024 8:59 AM CDT [facility] Jacinda Pham MD LAB BLOOD ORDERABLES Final Re sult [facility] Department [place] [address] * Differential, auto (09/22/2024 8:59 AM CDT) Pathologist [facility] Neutrophil abs 3.37 1.50 - 6.50 K/cumm Comment:Testing performed by : [facility], [address] [place] [id number] Imm gran abs 0.02 0.00 - 0.10 K/cumm [facility] Lymphocyte abs 0.96 0.80 - 3.30 K/cumm [facility] Monocyte abs 0.80 0.20 - 0.80 K/cumm [facility] Eosinophil abs 0.21 0.00 - 0.50 K/cumm [facility] Basophil abs 0.06 0.00 - 0.10 K/cumm [facility] Neutrophil pct 62.1 % [facility] Comment: Interpretive Data Percent cell count reference ranges are not reported, since discordance with absolute values may lead to misinterpretation of CBC data. Current Interpretive Data was last revised on 2017. Imm gran pct 0.4 % [facility] Comment: Interpretive Data Percent cell count reference ranges are not reported, since discordance with absolute values may lead to misinterpretation of CBC data. Current Interpretive Data was last revised on 2017. Lymphocyte pct 17.7 % [facility] Comment: Interpretive Data Percent cell count reference ranges are not reported, since discordance with absolute values may lead to misinterpretation of CBC data. Current Interpretive Data was last revised on 2017. Monocyte pct 14.8 % [facility] Comment: Interpretive Data Percent cell count reference ranges are not reported, since discordance with absolute values may lead to misinterpretation of CBC data. Current Interpretive Data was last revised on 2017. Eosinophil pct 3.9 % [facility] Comment: Interpretive Data Percent cell count reference ranges are not reported, since discordance with absolute values may lead to misinterpretation of CBC data. Current Interpretive Data was last revised on 2017. Basophil pct 1.1 % [facility] Comment: Interpretive Data Percent cell count reference ranges are not reported, since discordance with absolute values may lead to misinterpretation of CBC data. Current Interpretive Data was last revised on 2017. Blood 09/22/2024 8:59 AM CDT 09/22/2024 8:59 AM CDT us Olya Pham MD LAB BLOOD ORDERABLES Final Re sult Performing Organization Address City/[facility]/ZIP Co de Phone Number [facility] Department [place] [address] * Thyroid Function Sawyer (09/22/2024 8:59 AM CDT) TSH 3.89 0.30 - 4.20 mcIUnit/mL Blood 09/22/2024 8:59 AM CDT 09/22/2024 10:01 AM CDT Olya Pham MD LAB BLOOD ORDERABLES Final Re sult Performing Organization Address [facility]/ZIP Co de Phone Number [facility] Department [place] [address] * (ABNORMAL) CBC with auto differential (09/22/2024 8:59 AM CDT) [facility] WBC 5.42 3.80 - 9.90 K/cumm Comment:Testing performed by : [facility], [address] [place] [address] Hgb 11.9 11.9 - 15.5 g/dL [facility] Comment:Testing performed by : [address] [address] Hct 36.5 35.6 - 45.5 % [facility] Comment:Testing performed by : [address] [address] Plt 291 150 - 400 K/cumm [facility] Comment:Testing performed by : [address] [address] MPV 9.6 9.1 - 12.3 fL [facility] RBC 4.37 3.90 - 5.20 M/cumm [facility] MCV 83.5 81.3 - 96.4 fL [facility] MCH 27.2 27.1 - 33.3 pg [facility] MCHC 32.6 32.3 - 35.7 g/dL [facility] RDW CV 15.2(H) 11.1 - 14.9 % [facility] RDW SD 46.5 35.7 - 48.1 fL [facility] NRBC abs 0.00 0.00 - 0.01 K/cumm [facility] ANC Prelim 3.37 1.50 - 6.50 K/cumm [facility] Comment: Interpretive Data The rapid ANC is a preliminary automated count and may vary from the final ANC (Neut Abs) reported in the WBC differential that follows. Current interpretive data was last revised 2024. Blood 09/22/2024 8:59 AM CDT 09/22/2024 8:59 AM CDT Olya Pham MD LAB BLOOD ORDERABLES Final Re sult [facility] Department [place] [address] * TSH (09/22/2024 8:59 AM CDT) Pathologist [facility] Thyroid Stimulating Hormone 3.89 0.30 - 4.20 mcIUnit/mL Blood 09/22/2024 8:59 AM CDT 09/22/2024 10:01 AM CDT Olya Pham MD LAB BLOOD ORDERABLES Final Re sult Performing Organization Address [facility] Co de Phone Number [facility] [place] [address] * Comprehensive metabolic panel (09/22/2024 8:59 AM CDT) Pathologist [facility] Sodium 137 135 - 145 mmol/L Comment:Testing performed by : [facility], [address] [place] [address] Potassium, pl 4.4 3.3 - 4.9 mmol/L [facility] Chloride 101 97 - 110 mmol/L [facility] CO2 30 22 - 32 mmol/L [facility] Anion gap 6 2 - 15 mmol/L [facility] BUN 22 6 - 25 mg/dL [facility] Creatinine 0.80 0.60 - 1.10 mg/dL [facility] Glucose 89 70 - 199 mg/dL [facility] Comment: Interpretive Data Fasting glucose >/= 126 mg/dl is diagnostic for diabetes. Fasting is defined as no caloric intake for at least 8 hours. Fasting glucose between 100 mg/dl to 125 mg/dl is diagnostic of prediabetes. In a patient with classic symptoms of hyperglycemia or hyperglycemic crisis, a random glucose >/= 200 mg/dl is diagnostic for diabetes. In the absence of unequivocal hyperglycemia, results should be confirmed by repeat testing. The classification and Diagnosis of Diabetes Diabetes Care 2021; 46: S19-S40. Current interpretive data was last revised 2022. Calcium 9.6 8.5 - 10.3 mg/dL [facility] Bilirubin, total 0.7 0.1 - 1.2 mg/dL [facility] Protein, pl 6.9 6.5 - 8.5 g/dL [facility] Albumin 3.9 3.5 - 5.0 g/dL [facility] Alk phos 77 40 - 130 Units/L [facility] ALT 16 7 - 45 Units/L [facility] AST 23 10 - 45 Units/L [facility] Blood 09/22/2024 8:59 AM CDT 09/22/2024 8:59 AM CDT us Olya Pham MD LAB BLOOD ORDERABLES Final Re sult [facility] Department [place] [address] * PET/CT FDG Whole Body (09/20/2024 2:01 PM CDT) Anatomical Region Laterality Modality Body N/A Positron Emissio n Tomography (PET) 09/20/2024 3:30 PM CDT Impressions 09/20/2024 3:58 PM CDT 1. Postsurgical changes of left anterior thigh myxofibrosarcoma resection, distal femoral resection, and endoprosthetic reconstruction with a redemonstrated postoperative fluid collection extending along the femoral prosthesis and an indeterminate focus of moderately increased FDG-avidity along the anterior aspect of the femoral endoprosthesis. Marked peripheral FDG-avidity surrounding the left knee joint is favored to represent reactive synovitis. Recommend attention on follow-up imaging. 2. No other FDG-avid evidence of regional zachary or distant metastatic disease. 3. Marked FDG-avidity surrounding the right foot 1st digit proximal phalanx may represent sequela of recent trauma with incomplete evaluation of a possible underlying fracture. Recommend clinical correlation with point tenderness at this site and/or plain radiographs of the right foot, if clinically indicated. Dictated by: Gerber Guillory MD PHD The radiology attending physician has personally reviewed this study, and had reviewed and/or edited this written report and agrees with it. Electronically signed by: Ross Lara M.D. Narrative 09/20/2024 3:58 PM CDT EXAMINATION: TUMOR FDG-PET/CT IMAGING DATE OF STUDY: 09/20/2024 SCANNER: [facility] RADIOPHARMACEUTICAL: 16.24 mCi F-18 Fluorodeoxyglucose (FDG) i.v. Injection site: Right antecubital fossa. 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 The study is requested for treatment monitoring during therapy. Subsequent treatment strategy. TECHNIQUE: The patient's fasting blood glucose level, measured by glucometer before injection of FDG, was 107 mg/dL. After intravenous administration of FDG, noncontrast CT images were obtained for attenuation correction and for fusion with emission PET images to allow for anatomical localization of PET findings. Emission PET images were then obtained. The study was interpreted on the [employer] workstation. The mean liver SUV (reported for quality process lead purposes) is 2.2. The total scanned area was skull vertex to toes. Images of the body were obtained starting 53 minutes after injection of tracer. All reported SUVs are maximum SUVs, unless otherwise specified. COMPARISON: CT dated 07/31/2024. MRI dated 07/31/2024. DESCRIPTORS OF LESION FDG AVIDITY: Minimal: <= blood pool Mild: > blood pool and <= liver Moderate: > liver and <= 2x SUVmax liver Moderate to marked: >2x SUVmax liver and <= 3x SUVmax liver Marked: > 3x SUVmax liver FINDINGS: Postsurgical changes of left anterior thigh myxofibrosarcoma resection, distal femoral resection and endoprosthetic reconstruction, with a redemonstrated postoperative fluid collection extending along the femoral prosthesis. Along the anterior aspect of the distal femoral endoprosthesis, there is a focus of moderately increased FDG avidity with SUV of 5.8 (image 334/560) without definite CT correlate. Other areas of apparent FDG avidity along the periphery of the femoral endoprosthesis are favored to represent imaging artifact in the setting of attenuation correction given the absence on non-attenuation corrected images. Markedly increased FDG avidity surrounding the left total knee arthroplasty is favored to represent reactive synovitis. No suspicious FDG avid focus within the operative bed to suggest locoregional disease recurrence. Markedly increased FDG avidity surrounding the right foot 1st digit proximal phalanx (image 530/560) may represent sequela of recent trauma with a possible underlying incompletely evaluated fracture. Normal muscular activity is noted within the hands, rotator cuffs, and right calf. Degenerative disease is noted within the cervical and thoracic spine. Additional CT findings: Mild diffuse cerebral volume loss, with expected ex vacuo dilatation of the ventricles. Multiple dental extractions and restorations. Rightward deviation of the osseous nasal septum. Intracranial atherosclerotic calcifications. Multivessel coronary artery disease. Mild bilateral dependent atelectasis. There is old granulomatous disease. Mild hepatic steatosis. Small fat-containing periumbilical hernia. Mild diffuse left lower extremity edema. Postsurgical changes of right total knee arthroplasty. Moderate multilevel degenerative disc disease of the thoracolumbar spine. Grade 1 anterolisthesis of L4 on L5. Procedure Note Ross Lara MD - 09/20/2024 EXAMINATION: TUMOR FDG-PET/CT IMAGING DATE OF STUDY: 09/20/2024 SCANNER: [facility] RADIOPHARMACEUTICAL: 16.24 mCi F-18 Fluorodeoxyglucose (FDG) i.v. Injection site: Right antecubital fossa. 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 The study is requested for treatment monitoring during therapy. Subsequent treatment strategy. TECHNIQUE: The patient's fasting blood glucose level, measured by glucometer before injection of FDG, was 107 mg/dL. After intravenous administration of FDG, noncontrast CT images were obtained for attenuation correction and for fusion with emission PET images to allow for anatomical localization of PET findings. Emission PET images were then obtained. The study was interpreted on the [employer] workstation. The mean liver SUV (reported for quality process lead purposes) is 2.2. The total scanned area was skull vertex to toes. Images of the body were obtained starting 53 minutes after injection of tracer. All reported SUVs are maximum SUVs, unless otherwise specified. COMPARISON: CT dated 07/31/2024. MRI dated 07/31/2024. DESCRIPTORS OF LESION FDG AVIDITY: Minimal: <= blood pool Mild: > blood pool and <= liver Moderate: > liver and <= 2x SUVmax liver Moderate to marked: >2x SUVmax liver and <= 3x SUVmax liver Marked: > 3x SUVmax liver FINDINGS: Postsurgical changes of left anterior thigh myxofibrosarcoma resection, distal femoral resection and endoprosthetic reconstruction, with a redemonstrated postoperative fluid collection extending along the femoral prosthesis. Along the anterior aspect of the distal femoral endoprosthesis, there is a focus of moderately increased FDG avidity with SUV of 5.8 (image 334/560) without definite CT correlate. Other areas of apparent FDG avidity along the periphery of the femoral endoprosthesis are favored to represent imaging artifact in the setting of attenuation correction given the absence on non-attenuation corrected images. Markedly increased FDG avidity surrounding the left total knee arthroplasty is favored to represent reactive synovitis. No suspicious FDG avid focus within the operative bed to suggest locoregional disease recurrence. Markedly increased FDG avidity surrounding the right foot 1st digit proximal phalanx (image 530/560) may represent sequela of recent trauma with a possible underlying incompletely evaluated fracture. Normal muscular activity is noted within the hands, rotator cuffs, and right calf. Degenerative disease is noted within the cervical and thoracic spine. Additional CT findings: Mild diffuse cerebral volume loss, with expected ex vacuo dilatation of the ventricles. Multiple dental extractions and restorations. Rightward deviation of the osseous nasal septum. Intracranial atherosclerotic calcifications. Multivessel coronary artery disease. Mild bilateral dependent atelectasis. There is old granulomatous disease. Mild hepatic steatosis. Small fat-containing periumbilical hernia. Mild diffuse left lower extremity edema. Postsurgical changes of right total knee arthroplasty. Moderate multilevel degenerative disc disease of the thoracolumbar spine. Grade 1 anterolisthesis of L4 on L5. IMPRESSION: 1. Postsurgical changes of left anterior thigh myxofibrosarcoma resection, distal femoral resection, and endoprosthetic reconstruction with a redemonstrated postoperative fluid collection extending along the femoral prosthesis and an indeterminate focus of moderately increased FDG-avidity along the anterior aspect of the femoral endoprosthesis. Marked peripheral FDG-avidity surrounding the left knee joint is favored to represent reactive synovitis. Recommend attention on follow-up imaging. 2. No other FDG-avid evidence of regional zachary or distant metastatic disease. 3. Marked FDG-avidity surrounding the right foot 1st digit proximal phalanx may represent sequela of recent trauma with incomplete evaluation of a possible underlying fracture. Recommend clinical correlation with point tenderness at this site and/or plain radiographs of the right foot, if clinically indicated. Dictated by: Gerber Guillory MD PHD The radiology attending physician has personally reviewed this study, and had reviewed and/or edited this written report and agrees with it. Electronically signed by: Ross Lara M.D. [facility] Jacinda Pham MD IMG PET PROCEDURES Final Resu lt from Last 3 Months Insurance [facility] AETNA MEDICARE GOLD AETNA MEDICARE GOLD Advance Directives For more information, please contact: [phone] * Full Code (Latest Code Status on File) Date Activated Date Inactivated Comments 02/20/2024 2:21 AM 02/23/2024 6:42 PM * Full Code Date Activated Date Inactivated Comments 01/27/2024 5:59 PM 02/04/2024 4:26 PM * Full Code Date Activated Date Inactivated Comments 01/08/2024 10:42 PM 01/13/2024 6:52 PM * Full Code Date Activated Date Inactivated Comments 12/20/2022 9:15 AM 12/20/2022 5:06 PM * Full Code Date Activated Date Inactivated Comments 08/27/2022 12:46 PM 08/27/2022 7:47 PM Care Teams Spice Grinder Relationship Specialty Start Date End Date Aamir Crawford MD PCP - General 08/22/16 Olya Pham MD Consulting Physician Medical Oncology 12/29/23 Kd Murillo MD Consulting Physician Orthopedic Surgery 12/29/23 Rai Marcial III, MD PhD [address] [facility] DEPT RADIATION ONCOLOGY, [place] [address] Radiation Oncologist Radiation Oncology 02/24/24 Liudmila Chan, SUPERVISOR [employer] [address] [place] [address] Nurse Practitioner Nurse Practitioner 10/11/24
--- OUTSIDE RECORDS SUMMARY | 2024-12-02 14:19 | XMS_ITS | Encounter Summary ---
Author Organization [facility] Address [address] [place] [address] Phone Care Team Providers Care Environmental Compliance Officer Name Role Phone Aamir Crawford MD Primary Care Provider [phone] Olya Pham MD Unavailable [phone] Kd Murillo MD Unavailable Aggie PROCTOR MD PhD, Rai Patino Unavailable Liudmila Chan NP Unavailable [phone] Reason for Referral * Diagnostic Imaging (Routine) - Closed Specialty Diagnoses / Procedures Referred By Rosario t Referred To Contact Diagnoses Postoperative pain Hx of total knee arthroplasty, left Surgical follow-up care Procedures XR Pelvis 1 or 2 Views Kd Murillo MD [address] [facility] [address] Phone: tel: fax: [address] [phone] Referral ID Status Reason Start Date Expiration Date Visits Re quested Visits Authorized [id number] Closed 12/02/2024 01/01/2026 1 1 * Diagnostic Imaging (Routine) - Closed Specialty Diagnoses / Procedures Referred By Contac t Referred To Contact Diagnoses Postoperative pain Hx of total knee arthroplasty, left Surgical follow-up care Procedures XR Femur Left 2 or More Views Kd Murillo MD [address] [facility] [address] Phone: tel: fax: [address] [phone] Referral ID Status Reason Start Date Expiration Date Visits Re quested Visits Authorized [id number] Closed 12/02/2024 01/01/2026 1 1 * Diagnostic Imaging (Routine) - Closed Specialty Diagnoses / Procedures Referred By Rosario greer Referred To Contact Diagnoses Postoperative pain Hx of total knee arthroplasty, left Surgical follow-up care Procedures XR Knee Left 1 or 2 Views Kd Murillo MD [address] [facility] [address] Phone: tel: fax: [address] [phone] Referral ID Status Reason Start Date Expiration Date Visits Re quested Visits Authorized [id number] Closed 12/02/2024 01/01/2026 1 1 Reason for Visit * Reason Onset Date Comments Increased Left Knee/Thigh Pain 12/02/2024 Encounter Details Date Type Department Care Team (Late st Contact Info) Description 12/02/2024 Telephone [facility] Orthopaedic Surgery [address] [facility] 6th [place] [address] [place] [id number] Kd Murillo MD [address] [facility] [address] Increased Left Knee/Thigh Pain Social History Tobacco Use Types Packs/Day Years Used Date Smoking Tobacco: Never Passive Smoke Exposure: Past Smokeless Tobacco: Never [facility] Utilities Answer Date Recorded In [...] often do you attend chur ch or restorationist services? 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 Lozoya reviewed the XR. WNL. Related to her acute onset of pain and infection history, he has recommended a CBC, CMP, ESR and CRP. She will go by her PCP's office today to get those labs drawn. I called and Faxed the orders to [facility] [place] [phone]. I spoke to Deirdre to let her know that I am sending Alexia today for these labs. 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 I returned her call. She said she didn't fall, no incident. She has started using the walker. She has increased her opioids and is taking Diclofenac 75mg BID. She is going to [facility] for xrays today. I will review the XR's with Dr. Murillo. documented in this encounter Plan of Treatment Pending Results Name Type Priority Associated Diagnoses Date /Time XR Knee Left 1 or 2 Views Imaging Routine Postoperative pain Hx of total knee arthroplasty, left Surgical follow-up care 12/02/2024 10:46 AM CDT XR Femur Left 2 or More Views Imaging Routine Postoperative pain Hx of total knee arthroplasty, left Surgical follow-up care 12/02/2024 10:46 AM CDT XR Pelvis 1 or 2 Views Imaging Schedule Routine, Read Routine (OP Routine) Postoperative pain Hx of total knee arthroplasty, left Surgical follow-up care 12/02/2024 10:46 AM CDT Scheduled Orders Name Type Priority Associated Diagnoses Order Schedule XR Knee Left 1 or 2 Views Imaging Routine Postoperative pain Hx of total knee arthroplasty, left Surgical follow-up care Expected: 12/02/2024, Expires: 12/02/2025 XR Femur Left 2 or More Views Imaging Routine Postoperative pain Hx of total knee arthroplasty, left Surgical follow-up care Expected: 12/02/2024, Expires: 12/02/2025 XR Pelvis 1 or 2 Views Imaging Schedule Routine, Read Routine (OP Routine) Postoperative pain Hx of total knee arthroplasty, left Surgical follow-up care Expected: 12/02/2024, Expires: 12/02/2025 CBC with auto differential Lab Routine Postoperative pain Hx of total knee arthroplasty, left Surgical follow-up care Expected: 12/02/2024, Expires: 12/02/2025 Comprehensive metabolic panel Lab Routine Postoperative pain Hx of total knee arthroplasty, left Surgical follow-up care Expected: 12/02/2024, Expires: 12/02/2025 Erythrocyte sedimentation rate Lab Routine Postoperative pain Hx of total knee arthroplasty, left Surgical follow-up care Expected: 12/02/2024, Expires: 12/02/2025 CRP (acute phase) Lab Routine Postoperative pain Hx of total knee arthroplasty, left Surgical follow-up care Expected: 12/02/2024, Expires: 12/02/2025 documented as of this encounter Visit Diagnoses Diagnosis Postoperative pain- Primary Other acute postoperative pain Hx of total knee arthroplasty, left Surgical follow-up care documented in this encounter Discontinued Medications Medication Sig Discontinue Reason Start Date End Da te gabapentin (NEURONTIN) 300 mg capsuleIndications:Soft tissue sarcoma of thigh, left (HCC) Take 1 capsule (300 mg total) by mouth daily Patient Reported 09/22/2024 12/02/2024 rOPINIRole (REQUIP) 0.25 mg tabletIndications:Postop erative pain Take 1-3 tablets (0.25-0.75 mg total) by mouth nightly as needed (Restless leg syndrome) Patient Reported 08/04/2024 12/02/2024 documented as of this encounter Care Teams Environmental Compliance Officer Relationship Specialty Start Date End Date Aamir Crawford MD PCP - General 08/22/16 Olya Pham MD Consulting Physician Medical Oncology 12/29/23 Kd Murillo MD Consulting Physician Orthopedic Surgery 12/29/23 Rai Marcial III, MD PhD [address] [facility] DEPT RADIATION ONCOLOGY, [place] [address] Radiation Oncologist Radiation Oncology 02/24/24 Liudmila Chan NP [address] [place] [address] Nurse Practitioner Nurse Practitioner 10/11/24 documented as of this encounter
--- OUTSIDE RECORDS SUMMARY | 2024-12-02 14:19 | XMS_ITS | Encounter Summary ---
Author Organization [facility] Healthcare Address [address] [place] [address] Care Team Providers Care Grinder Setup Operator Name Role Phone Aamir Crawford MD Primary Care Provider [phone] Olya Pham MD Unavailable [phone] Kd Murillo MD Unavailable [phone] Aggie PROCTOR MD PhD, Rai Patino Unavailable Liudmila Chan NP Unavailable [phone] Reason for Referral * Diagnostic Imaging (Routine) - Closed Specialty Diagnoses / Procedures Referred By Contac t Referred To Contact Diagnoses Postoperative pain Hx of total knee arthroplasty, left Surgical follow-up care Procedures XR Femur Left 2 or More Views Kd Murillo MD [address] [facility] [place] [address] Phone: tel: fax: [address] [phone] Referral ID Status Reason Start Date Expiration Date Visits Re quested Visits Authorized [id number] Closed 12/02/2024 01/01/2026 1 1 * Diagnostic Imaging (Routine) - Closed Specialty Diagnoses / Procedures Referred By Rosario greer Referred To Contact Diagnoses Postoperative pain Hx of total knee arthroplasty, left Surgical follow-up care Procedures XR Knee Left 1 or 2 Views Kd Murillo MD [address] [place] [address] Phone: tel: fax: [address] [phone] Referral ID Status Reason Start Date Expiration Date Visits Re quested Visits Authorized [id number] Closed 12/02/2024 01/01/2026 1 1 * Diagnostic Imaging (Routine) - Closed Specialty Diagnoses / Procedures Referred By Rosario greer Referred To Contact Diagnoses Postoperative pain Hx of total knee arthroplasty, left Surgical follow-up care Procedures XR Pelvis 1 or 2 Views Kd Murillo MD [address] [address] Phone: tel: fax: [address] [phone] Referral ID Status Reason Start Date Expiration Date Visits Re quested Visits Authorized [id number] Closed 12/02/2024 01/01/2026 1 1 Reason for Visit * Diagnostic Imaging (Routine) - Closed Specialty Diagnoses / Procedures Referred By Rosario greer Referred To Contact Diagnoses Postoperative pain Hx of total knee arthroplasty, left Surgical follow-up care Procedures XR Pelvis 1 or 2 Views Kd Murillo MD [address] [facility] [address] [place] [address] Phone: tel: fax: [address] [phone] Referral ID Status Reason Start Date Expiration Date Visits Re quested Visits Authorized [id number] Closed 12/02/2024 01/01/2026 1 1 Encounter Details Date Type Department Care Team (Latest Contact Info) Description 12/02/2024 10:28 AM CDT Hospital Encounter [facility] Diagnostic Imaging [address] [place], [place] [address] Postoperative pain; Hx of total knee arthroplasty, left; Surgical follow-up care Social History Tobacco Use Types Packs/Day Years Used Date Smoking Tobacco: Never Passive Smoke Exposure: Past Smokeless Tobacco: Never [facility] Utilities Answer Date Recorded In the past 12 months has e electric, gas, oil, or water company [...] often do you attend chur ch or tenriism services? More than 4 times per year 02/22/2024 Do you belong to any clubs o r organizations such as scientologist groups, unions, fraternal or athletic groups, or [...] any time in the past 12 m [facility], were you homeless or living in a fdc (including now)? No 02/22/2024 Personal Safety Answer Date Recorded Have you ever been in or are you currently in a harmful physical or emotional relationship or is someone making you feel afraid or unsafe? 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 as of this encounter Plan of Treatment Pending Results Name Type Priority Associated Diagnoses Date /Time XR Pelvis 1 or 2 Views Imaging Schedule Routine, Read Routine (OP Routine) Postoperative pain Hx of total knee arthroplasty, left Surgical follow-up care 12/02/2024 10:46 AM CDT XR Knee Left 1 or 2 Views Imaging Routine Postoperative pain Hx of total knee arthroplasty, left Surgical follow-up care 12/02/2024 10:46 AM CDT XR Femur Left 2 or More Views Imaging Routine Postoperative pain Hx of total knee arthroplasty, left Surgical follow-up care 12/02/2024 10:46 AM CDT Scheduled Orders Name Type Priority Associated Diagnoses Orde r Schedule XR Pelvis 1 or 2 Views Imaging Schedule Routine, Read Routine (OP Routine) Postoperative pain Hx of total knee arthroplasty, left Surgical follow-up care Once for 1 Occurrences starting 12/02/2024 until 12/02/2024 XR Knee Left 1 or 2 Views Imaging Routine Postoperative pain Hx of total knee arthroplasty, left Surgical follow-up care Once for 1 Occurrences starting 12/02/2024 until 12/02/2024 XR Femur Left 2 or More Views Imaging Routine Postoperative pain Hx of total knee arthroplasty, left Surgical follow-up care Once for 1 Occurrences starting 12/02/2024 until 12/02/2024 documented as of this encounter Visit Diagnoses Diagnosis Postoperative pain Other acute postoperative pain Hx of total knee arthroplasty, left Surgical follow-up care documented in this encounter Care Teams Grinder Setup Operator Relationship Specialty Start Date End Date Aamir Crawford MD PCP - General 08/22/16 Olya Pham MD Consulting Physician Medical Oncology 12/29/23 Kd Murillo MD Consulting Physician Orthopedic Surgery 12/29/23 Rai Marcial III, MD PhD [address] [facility] [place] [address] Radiation Oncologist Radiation Oncology 02/24/24 Liudmila Chan NP [address] [place] [address] Nurse Practitioner Nurse Practitioner 10/11/24 documented as of this encounter
--- OUTSIDE RECORDS SUMMARY | 2024-12-02 14:19 | XMS_ITS | Encounter Summary ---
Author Organization [facility] Address [address] [place] [address] Care Team Providers Care Tailercpa Name Role Phone Aamir Crawford MD Primary Care Provider [phone] Olya Pham MD Unavailable [phone] [address] Murillo MD Unavailable [phone] Aggie PORCTOR MD PhD, Rai Patino Unavailable Liudmila Chan REHABILITATION SERVICES COORDINATOR Unavailable [phone] Encounter Details Date Type Department Care Team (Late st Contact Info) Description 06/03/2024 Completion of Therapy [facility] Advanced Medicine Radiation Oncology [address] [facility] Advanced Medicine [facility] [place] [address] Rai Marcial III, MD PhD [address] [facility] [address] [place] [address] Social History Tobacco Use Types Packs/Day Years Used Date Smoking Tobacco: Never Passive Smoke Exposure: Past Smokeless Tobacco: Never [facility] Utilities Answer Date Recorded In the past 12 months has [employer] electric, gas, oil, or water company threatened [...] often do you attend chur ch or orthodoxy services? More than 4 times per year 02/22/2024 Do you belong to any clubs o r organizations such as jehovah's witness groups, unions, fraternal or athletic groups, or [...] any time in the past 12 m [facility], were you homeless or living in a care home (including now)? No 02/22/2024 Personal Safety Answer Date Recorded Have you ever been in or are you currently in a harmful physical or emotional relationship or is someone making you feel afraid or unsafe? 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 Radiation Oncologist: Rai Marcial MD PhD Primary Care Physician: Aamir Crawford MD Medical Oncologist: Olya Pham MD Surgeon: No care sample steamer to display Date of Service: 06/03/2024 RADIATION ONCOLOGY COMPLETION OF THERAPY (COT) Identifying Data: Cancer Staging Soft tissue sarcoma of thigh, left (HCC) Staging form: Soft Tissue Sarcoma of the Trunk and Extremities, AJCC 8th Edition - Pathologic stage from 01/08/2024: Stage IIIB (pT4, pN0, cM0, FNCLCC histologic grade: G3) - SignedAnaly Arora PA on 02/24/2024 Oncology History Overview Note DIAGNOSIS: myxofibrosarcoma of the left thigh SYSTEMIC THERAPIES: Adjuvant Pembrolizumab + Radiation 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 She thought it was a knotted up muscle. The mass has grown in size and has become increasingly painful. 11/2023 Imaging Significant Findings 12/11/2023 MRI of the thigh, exam not completed due to patient discomfort. 12/16/2023 ultrasound of the left thigh demonstrated complex cystic and solid mass measuring 2.7 cm 12/23/2023 Biopsy biopsy of the mass demonstrated undifferentiated pleomorphic sarcoma, FNCLCC grade 2 of 3 01/02/2024 Imaging Significant Findings MRI of the left thigh demonstrated a 10.4 cm mass in the left vastus intermedius muscle with cortical erosion of the anterior femoral cortex underlying superior aspect of the mass. 01/05/2024 Initial Diagnosis Soft tissue sarcoma of thigh, left (HCC) 01/08/2024 - Cancer Staged Staging form: Soft Tissue Sarcoma of the Trunk and Extremities, AJCC 8th Edition - Pathologic stage from 01/08/2024: Stage IIIB (pT4, pN0, cM0, FNCLCC histologic grade: G3) 01/08/2024 Surgery left distal femur resection with left distal femur replacement with Dr. Murillo. Path showed 15.2cmmyxofibrosarcoma, FNCLCC grade 3 of 3. Margins negative. Final stage pT4N0. 01/28/2024 irrigation and debridement of left thigh followed by 6 weeks of IV cefazolin. Further treatment deferred until end of infection treatment (~03/11/2024). 02/19/[address] C/A/P showed left inguinal, pelvic, and retroperitoneal LAD likely 2/2 surgery, but zachary disease cannot be completely excluded. Short interval follow up recommended. CT LLE showed post-operative changes and 1.0cm left inguinal lymph node. 03/11/2024 Genetic Testing Results revealed patient has the following mutation(s): Detected somatic variants: There is no matching variant data for this patient. PD-L1 CPS: 4 Detected germline variants: There is no matching variant data for this patient. 04/01/2024 - Immunotherapy Adjuvant Pembrolizumab with concurrent Radiation 04/01/24 C1 Pembro 04/22/24 C2 Pembro, RT start 04/22. 05/12/24 C3 Pembro 73 y.o. 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 She is s/p left distal femur resection and left distal femur replacement (01/08/2024, Urdu). Path revealed 15.2 tumor,margins negative. Healing complicated by SSI requiring I&D and 6 weeks of Ancef. Plan for post-op RT Treatment Delivered: Start: 04/22/24 End: 06/03/24 Radiation Treatments Active Plans LT THIGH BST Most recent treatment: Dose planned: 200 cGy (fraction 5 on 06/03/2024) Total: Dose planned: 1,000 cGy Elapsed Days: 42 LT THIGH INIT Most recent treatment: Dose planned: 200 cGy (fraction 25 on 05/27/2024) Total: Dose planned: 5,000 cGy Elapsed Days: 35 Reference Points PTV_5000 Most recent treatment: Dose given: 200 cGy (on 05/27/2024) Total: Dose given: 5,000 cGy Elapsed Days: 35 PTV_6000 Most recent treatment: Dose given: 200 cGy (on 06/03/2024) Total: Dose given: 1,000 cGy Elapsed Days: 42 Radiation Treatments No historical radiation treatments to show. Concurrent Therapy: Pembrolizumab Pain Plan: RAD ONC PAIN PLAN: The patient is not currently having any pain that requires changes in pain management. Tolerance to Treatment: Ms. Black developed severe pain in her left leg that was managed with increased [place]. She had amild grade 1 skin reaction. She overall did well during treatment. Disposition: Follow up in clinic in 6 weeks Post treatment skin care instructions given. Patient was instructed to call with any concerns prior to scheduled follow up visit. English Language Arts Teacher completed by using [employer] Fluency Direct speaking software, therefore, transcriptionvariances may occur. Cosigned by Rai Marcial III, MD PhD at 07/02/2024 8:52 AM CDT MENT IMAGE TECHNICIAN documented in this encounter Plan of Treatment Not on file documented as of this encounter Visit Diagnoses Not on filedocumented in this encounter Care Teams Tailercpa Relationship Specialty Start Date End Date Aamir Crawford MD PCP - General 08/22/16 Olya Pham MD Consulting Physician Medical Oncology 12/29/23 Kd Murillo MD Consulting Physician Orthopedic Surgery 12/29/23 Rai Marcial III, MD PhD [address] [facility], [place] [address] Radiation Oncologist Radiation Oncology 02/24/24 Liudmila Chan NP [address] [place] [address] Nurse Practitioner Nurse Practitioner 10/11/24 documented as of this encounter
--- OUTSIDE RECORDS SUMMARY | 2024-12-02 14:19 | XMS_ITS ---
Author Organization [facility] [address] Address [facility] [place] [address] Care Team Providers Care Turner Machine Operator Name Role Phone Aamir Crawford MD Primary Care Provider [phone] Olya Pham MD Unavailable [phone] [address] Murillo MD Unavailable [phone] Aggie PROCTOR MD PhD, Rai Patino Unavailable Liudmila Chan NP Unavailable [phone] Active Problems Problem Noted Date Diagnosed Date [...] concerns. Assessment & Plan (05/21/2024 4:26 PM SUBSCRIPTION CREW LEADER): Completed approximately three weeks combined Cefazolin and [...] concerns. Assessment & Plan (03/09/2024 3:21 PM SUBSCRIPTION CREW LEADER): Completed approximately three weeks combined Cefazolin and [...] Murillo Assessment & Plan (02/23/2024 12:02 PM SUBSCRIPTION CREW LEADER): Alexia Black is a 73-year-old woman with PMH of LLE pleomorphic sarcoma s/p femoral resection and Left femur prosthesis 01/08/2024 who was recently admitted at [facility] for MSSA BSI and Left femoral prosthesis [...] joint replacement surgery Essential (primary) hypertension 08/28/2022 rink rat (current) use of opiate analgesic 08/19 Chronic midline low back pain without sciatica 0 08/28/2022 Obesity, unspecified 08/28/2022 Presence of right artificial knee joint 08/29/19 Osteoarthritis 08/27/2022 Primary osteoarthritis of right knee 06/10/2022 Overview (06/10/2022): Added automatically from request for surgery [id number] Current Treatment and Therapy Plans Pembrolizumab 21 Day Cycles* Plan Start Date:02/25/2024 Plan Provider:Olya Pham MD Linked Problems Soft tissue sarcoma of thigh , left (HCC)Undifferentiated pleomorphic sarcoma (HCC) Treatment Medications Current Day (Day 1 , Cycle 7 - Planned for 09/22/2024) Next Day (Day 1, Cycle 8 - Planned for 10/13/2024) pembrolizumab (KEYTRUDA)pembrolizumab (KEYTRUDA) IVPB in 100 mL pembrolizumab (KEYTRUDA) 200 mg in sodium chloride 0.9% 100 mL pembrolizumab (KEYTRUDA) 200 mg in sodium chloride 0.9% 100 mL Other Current Plans Venous Sampling from IVAD* Plan Start Date:03/08/2024 Plan Provider:Kd Murillo MD Linked Problems Aftercare following joint re placement surgery, unspecified joint Treatment Medications No medications scheduled. Past Treatment and Therapy Plans No past plan information found. Radiation Treatments * Course [id number] 04/22/2024 - 06/04/2024 Treatment Period Energy Fraction Dose Fractions Total Dose Plans Planned LT THIGH BST 05/28/2024 - 06/04/2024 200 5 / 1,000 LT THIGH INIT 04/22/2024 - 06/04/2024 200 25 / 5,000 Reference Points Delivered PTV_5000 04/22/2024 - 06/04/2024 5,000 PTV_6000 05/28/2024 - 06/04/2024 1,000 Lifetime Dose Tracking * Chemical Lifetime Dose Automatic Entry Manual Entr y Fluoro Time 0.127 minutes 0.127 minutes 0 minutes Air kerma at the reference point (Ka,r) 0.98 mGy 0 .98 mGy 0 mGy DLP 2,660 mGycm 2,660 mGycm 0 mGycm Resolved Problems Problem Noted Date Diagnosed Date Resolved Date Unspecified visual loss 08/28/2022 03/2 08/2024
[2024-12-02 18:52] LABS: Alanine Aminotransferase 19 U/L (6-35); Albumin Level 4.3 g/dL (3.5-5.1); Alkaline Phosphatase 62 U/L (38-126); Anion Gap 8 mmol/L (4-12); Aspartate Amino Transferase 36 U/L (14-36); Bilirubin,Total 1.0 mg/dL (0.2-1.3); Blood Urea Nitrogen 12 mg/dL (7-17); CRP 1.0 mg/dL (<1.0); Calcium 9.5 mg/dL (8.4-10.2); Carbon Dioxide 29 mmol/L (22-30); Chloride 99 mmol/L (98-107); Estimated Glomerular Filt Rate 54; Glucose 128 mg/dL (65-110); Potassium 4.3 mmol/L (3.4-5.0); Sodium 136 mmol/L (137-145); Total Protein 7.3 g/dL (6.3-8.2)
[2024-12-02 19:03] LABS: Hematocrit 40.3 % (37.0-47.0); Hemoglobin 13.2 g/dL (12.0-15.0); Immature Granulocyte Percent A 0.3 % (0-0.5); Lymphocytes Absolute Auto 0.82 K/mm3 (0.9-3.2); Mean Corpuscular HGB Conc 32.8 g/dl (32-36); Mean Corpuscular Hemoglobin 27.8 pg (26-34); Mean Corpuscular Volume 84.8 fl (80-100); Nucleated Red Blood Cells Absolute Auto 0.000 K/mm3 (0.0-0.012); Nucleated Red Blood Cells Perc 0.0 % (0.0-0.2); Platelet Count Result 352 k/mm3 (150-375); Red Blood Count 4.75 M/mm3 (4.2-5.4); White Blood Count 6.7 K/mm3 (4.5-10.0)
== END 2024-12-02 14:15 | disposition home or self-care (01) ==
LOC: ANHGOSHLAB 14:16
PROVIDERS: PCP Family Medicine
DX: G89.18 Other acute postprocedural pain (principal); Z96.652 Presence of left artificial knee joint; Z09 Encounter for follow-up examination after completed treatment for conditions other than malignant neoplasm
CPT/HCPCS: 36415; 80053; 85025; 85652; 86140